=== PATIENT | male | born 1945 | race Caucasian/White ===

== ENCOUNTER 2020-06-14 09:11 | Inpatient (IN) | payer OTHER ==
[2020-06-14 09:51] LABS: Absolute Lymphocytes (CBC) 1.7 K/uL (0.7-4.9); Basophils % 0.8 % (0-1.3); Hematocrit 45.9 % (39.6-49.0); Lymphocytes % 27.5 % (15.3-44.8); MPV 8.7 fL (7.6-11.3)
[2020-06-14 09:52] LABS: Protime INR 1.01
--- NOTE | 2020-06-14 10:07 | RAD REPORT ---
EXAM DESCRIPTION: CT - Head Brain Wo Cont - 06/14/2020 9:56 am CLINICAL HISTORY: Syncope/weakness COMPARISON: None TECHNIQUE: Computed axial tomography of the head was obtained. IV contrast was not requested. All CT scans are performed using dose optimization technique as appropriate and may include automated exposure control or mA/KV adjustment according to patient size. FINDINGS: An intracranial bleed is not seen . The ventricles are normal in caliber. No extra-axial fluid collection is noted. Low density area within the left thalamus and right internal capsule probably old lacunar infarctions . Moderate low-density areas within periventricular, deep and subcortical white matter likely represent ischemic changes secondary to small vessel disease. Fluid within the sinuses/ mastoids is not seen. IMPRESSION: No acute intracranial abnormality is seen. If patient's symptoms persist MRI of the bra in would be recommended.
--- NOTE | 2020-06-14 10:08 | RAD REPORT ---
EXAM DESCRIPTION: Robert Single View06/14/2020 9:55 am CLINICAL HISTORY: Cough COMPARISON: none FINDINGS: The lungs appear clear of acute infiltrate. The heart is normal size IMPRESSION: No acute abnormalities displayed
[2020-06-14 10:11] LABS: Albumin 3.8 g/dL (3.4-5.0); Bilirubin Direct 0.2 mg/dL (0-0.2); Bilirubin Total 0.8 mg/dL (0.2-1.0); Magnesium 2.4 mg/dL (1.8-2.4); Potassium 4.1 mmol/L (3.5-5.1); Protein, Total 7.4 g/dL (6.4-8.2)
--- NOTE | 2020-06-14 12:21 | RAD REPORT ---
EXAM DESCRIPTION: MRI - MRA Neck W/Wo Cont - 06/14/2020 12:11 pm CLINICAL HISTORY: Syncope COMPARISON: None. TECHNIQUE: Magnetic resonance angiogram of the neck was performed. 19 cc MultiHance was administered intravenously. 3D MIPS reconstruction performed FINDINGS: The common carotid, internal carotid and external carotid arteries do not demonstrate a si gnificant stenosis. An aneurysm is not seen. The left vertebral artery is more dominant than the right. IMPRESSION: No significant abnormalities displayed NASCET criteria used. Mild 0-49% stenosis Moderate 50-69% stenosis Severe 70-99% stenosis
--- NOTE | 2020-06-14 12:26 | RAD REPORT ---
EXAM DESCRIPTION: MRI - MRA Head Wo Cont - 06/14/2020 12:07 pm CLINICAL HISTORY: Syncope COMPARISON: None. TECHNIQUE: Magnetic resonance angiogram was performed. 3D MIPS reconstruction performed FINDINGS: Mild short-segment narrowing involves right and left posterior cerebral arteries. This pro bably is chronic. A2 segment left anterior cerebral artery is larger than the right probably a normal variant Middle cerebral, internal carotid and basilar arteries appear unremarkable An aneurysm is not displayed. IMPRESSION: No acute abnormality displayed
--- NOTE | 2020-06-14 12:37 | RAD REPORT ---
EXAM DESCRIPTION: MRI - Brain W/Wo Cont - 06/14/2020 12:20 pm CLINICAL HISTORY: Syncope COMPARISON: Head CT June 14, 2020 TECHNIQUE: Axial, sagittal, and coronal magnetic images of the brain were obtained. Seventeen cc Mul tiHance administered intravenously FINDINGS: Moderate signal within periventricular, deep and subcortical white matter probably ischemi c changes secondary to small vessel disease. 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 Diffusion-weighted/ ADC mapping sequences demonstrate a 7 millimeter area of abnormal signal within t he left basal ganglia which is compatible with an acute infarction. No abnormal enhancement within the brain is seen. An extra-axial fluid collection is not noted. Fluid within the sinuses/mastoids is not seen IMPRESSION: Acute 7 millimeter left basal ganglia infarct
--- NOTE | 2020-06-14 13:01 | ER ---
Nurse's Notes [facility] Name: Blair Garcia Age: 75 yrs Sex: Male : 1945 Arrival Date: 06/14/2020 Time: 09:14 Bed 8 Private MD: Diagnosis: Cerebral infarction Presentation: 06/14 09:15 Chief complaint: EMS states: Toned out by for near fall, pt reports his right arm jl7 gave out while standing with a walker and he just slowly sat on the floor, did not hit head, did not loose consciousness, denies pain. Coronavirus screen: Client denies travel out of the [place] in the last 14 days. At this time, the client does not indicate any symptoms associated with coronavirus-19. Ebola Screen: No symptoms or risks identified at this time. Initial Sepsis Screen: Does the patient meet any 2 criteria? No. Patient's initial sepsis screen is negative. Does the patient have a suspected source of infection? No. Patient's initial sepsis screen is negative. Risk Assessment: Do you want to hurt yourself or someone else? Patient reports no desire to harm self or others. Onset of symptoms was June 14, 2020 at 08:15. Care prior to arrival: Glucose check: 119. 09:15 Method Of Arrival: EMS: [facility] jl7 09:15 Acuity: SOFIA 3 jl7 Triage Assessment: 09:22 General: Appears in no apparent distress. uncomfortable, Behavior is calm, cooperative, jl7 appropriate for age. Pain: Denies pain. EENT: No signs and/or symptoms were reported regarding the EENT system. Neuro: Level of Consciousness is awake, alert, obeys commands, Oriented to person, place. Cardiovascular: Patient's skin is warm and dry. Respiratory: Airway is patent Respiratory effort is even, unlabored, Respiratory pattern is regular, symmetrical. Derm: Skin is pink, warm \T\ dry. Historical: - Allergies: : No Known Allergies; jl7 - Home Meds: :22 Carbidopa-Levodopa Oral [Active]; duloxetine oral oral [Active]; memantine oral oral jl7 [Active]; - PMHx: 09: Parkinsons; Dementia; jl7 - Immunization history:: Adult Immunizations unknown. - Social history:: Smoking status: Patient denies any tobacco usage or history of. Screenin:23 Abuse screen: Denies threats or abuse. Denies injuries from another. Nutritional jl7 screening: No deficits noted. Tuberculosis screening: No symptoms or risk factors identified. 10:00 Patient has been NPO before screening. The patient is alert, able to follow commands. jl7 The patient does not exhibit slurred or garbled speech The patient is not exhibiting difficulty speaking. The patient does not exhibit difficulty understanding words. The patient is able to swallow own secretions with no drooling or need for suction. Patient tolerated one teaspoon of water. No drooling, immediate coughing, gurgling, or clearing of the throat was noted. The patient tolerated 90mL of water. No drooling, immediate coughing, gurgling, or clearing of the throat was noted. The patient passed the bedside swallow screening. Oral medications may be given as ordered. Contact Physician for further diet orders. Provider notified of bedside swallow screening results: Ashley NAVARRO-Umesh. 10:00 Fall Risk Fall in past 12 months (25 points). Secondary diagnosis (15 points) dementia, jl7 IV access (20 points). Ambulatory Aid- Crutches/Cane/Walker (15 pts). Gait- Weak (10 pts.). Mental Status- Oriented to own ability (0 pts). Total Church Fall Scale indicates High Risk Score (45 or more points). Fall prevention measures have been instituted. Side Rails Up X 2 Placed Close to Nursing Station Frequent Obs/Assessments Occuring Family Present and informed to notify staff if the need to leave the bedside As available patient and family educated on Fall Prevention Program and Strategies. Assessment: 09:30 General: Appears in no apparent distress. Behavior is calm, cooperative. Pain: Denies hb pain. Neuro: Level of Consciousness is awake, alert, obeys commands, Oriented to person. Cardiovascular: Capillary refill < 3 seconds Patient's skin is warm and dry. Respiratory: Airway is patent Respiratory effort is even, unlabored, Respiratory pattern is regular, symmetrical. GI: No signs and/or symptoms were reported involving the gastrointestinal system. : No signs and/or symptoms were reported regarding the genitourinary system. EENT: No signs and/or symptoms were reported regarding the EENT system. Derm: Skin is pink, warm \T\ dry. Musculoskeletal: Parent/caregiver report the patient having generalized weakness. 10:30 Reassessment: Patient appears in no apparent distress at this time. No changes from hb previously documented assessment. Patient and/or family updated on plan of care and expected duration. Pain level reassessed. 11:23 Reassessment: Patient appears in no apparent distress at this time. No changes from hb previously documented assessment. Patient and/or family updated on plan of care and expected duration. Pain level reassessed. 12:51 Reassessment: Patient appears in no apparent distress at this time. No changes from hb previously documented assessment. Patient and/or family updated on plan of care and expected duration. Pain level reassessed. 14:00 Reassessment: Patient appears in no apparent distress at this time. No changes from jl7 previously documented assessment. Patient and/or family updated on plan of care and expected duration. Pain level reassessed. 15:00 Reassessment: Patient appears in no apparent distress at this time. No changes from jl7 previously documented assessment. Patient and/or family updated on plan of care and expected duration. Pain level reassessed. 16:45 Reassessment: Pt's reports pt is becoming agitated and beginning to , jl7 requesting assistance to change ot's pullup and requesting to feed pt. Dr. Bravo reports Dr. Clark will see the pt tomorrow and he will get in touch with him tonight to inquire what to give pt to help relax him through the night. Gave VO for soft diet until speech therapy seeing pt tomorrow. Changed pts brief, ordered diet tray, updated pt and pt's on POC, awaiting bed assignment. 18:30 Reassessment: Patient appears in no apparent distress at this time. No changes from hb previously documented assessment. Patient and/or family updated on plan of care and expected duration. Pain level reassessed. Vital Signs: 09:15 BP 168 / 91; Pulse 61; Resp 13; Temp 98; Pulse Ox 96% ; Weight 74.84 kg; Height 5 ft. 6 jl7 in. (167.64 cm); Pain 0/10; 09:45 BP 168 / 91; Pulse 66; Resp 15; Pulse Ox 99% on R/A; hb 10:45 BP 164 / 84; Pulse 65; Resp 15; Pulse Ox 99% ; hb 12:45 BP 160 / 82; Pulse 64; Resp 16; Pulse Ox 99% on R/A; hb 13:30 BP 175 / 83; Pulse 68; Resp 15; Pulse Ox 98% ; jl7 14:30 BP 154 / 90; Pulse 58; Resp 16; Pulse Ox 96% ; jl7 15:30 BP 151 / 78; Pulse 54; Resp 17; Pulse Ox 93% ; jl7 16:30 BP 170 / 106; Pulse 67; Resp 15; Pulse Ox 94% ; jl7 17:33 BP 168 / 65; Pulse 69; Resp 15; Pulse Ox 91% ; jl7 18:30 BP 149 / 78; Pulse 80; Resp 15; Pulse Ox 99% on R/A; hb 19:27 BP 152 / 83; Pulse 70; Resp 18; Pulse Ox 98% ; ea 09:15 Body Mass Index 26.63 (74.84 kg, 167.64 cm) jl7 ED Course: 09:14 Patient arrived in ED. ds1 09:15 Ben Gabriel, JAZIEL is Primary Nurse. jl7 09:19 Ashley Mejía FNP-C [facility]. kb 09:19 Jagdeep Elizondo MD is Attending Physician. kb 09:19 Triage completed. jl7 09:22 Arm band placed on right wrist. jl7 09:23 Patient has correct armband on for positive identification. Placed in gown. Bed in low jl7 position. Call light in reach. Side rails up X 1. campus monitor on. Pulse ox on. NIBP on. 09:54 CT Head Brain wo Cont In Process Unspecified. EDMS 09:55 XRAY Chest (1 view) In Process Unspecified. EDMS 10:00 Initial lab(s) drawn, by ct, sent to lab. EKG done, by ED staff, reviewed by Ashley APPIAH. Inserted saline lock: 20 gauge in right hand, using aseptic technique. Blood collected. 12:00 COVID swab sent to lab. jl7 12:08 MRA Head Wo Cont In Process Unspecified. EDMS 12:08 Brain W/Wo Cont In Process Unspecified. EDMS 12:08 MRA Neck W/Wo Cont In Process Unspecified. EDMS 13:00 Ruiz Bravo is Hospitalizing Provider. kb 19:15 No provider procedures requiring assistance completed. Patient admitted, IV remains in ea place. 19:39 Primary Nurse role handed off by Ben Gabriel, RN mw2 Administered Medications: 13:23 Drug: PlaVIX 75 mg Route: PO; jl7 17:57 Follow up: Response: No adverse reaction jl7 13:23 Drug: foLIC Acid 1 mg Route: PO; jl7 17:56 Follow up: Response: No adverse reaction jl7 13:31 Drug: Aspirin Chewable Tablet 324 mg Route: PO; jl7 17:58 Follow up: Response: No adverse reaction jl7 Outcome: 13:00 Decision to Hospitalize by Provider. kb 19:51 Admitted to Med/surg accompanied by tech, via stretcher, with chart. mg2 19:51 Condition: stable 19:51 Instructed on the need for admit, Demonstrated understanding of instructions. 19:58 Patient left the ED. mg2 Signatures: Dispatcher [employer] EDMS Ashley Mejía, LACE INSPECTOR-C LACE INSPECTOR-Ckb Sandra Rivera ds1 Katya Kiran RN RN Ben Gabriel, RN RN jl7 Bella Santiago RN RN ea [place], MyKena mw2 Jassi Neilson RN JAZIEL mg2
--- NOTE | 2020-06-14 13:01 | EDPHYS ---
Physician Documentation [facility] Name: Blair Garcia Age: 75 yrs Sex: Male : 1945 Arrival Date: 06/14/2020 Time: 09:14 Bed 8 Private MD: ED Physician Jagdeep Elizondo HPI: 06/14 10:01 This 75 yrs old Male presents to ER via EMS with complaints of General kb Weakness. 10:01 The patient presents with generalized weakness. Onset: The symptoms/episode kb began/occurred this morning. Context: occurred at home, occurred while the patient was asleep, just prior to the episode the patient experienced no apparent symptoms. Modifying factors: The symptoms are alleviated by nothing, the symptoms are aggravated by nothing. Associated signs and symptoms: Pertinent negatives: chest pain, focal weakness, syncope. Severity of symptoms: At their worst the symptoms were moderate in the emergency department the symptoms are unchanged. Patient's baseline: Neuro: alert and fully oriented, Motor: right-sided weakness, left-sided weakness, Ambulation: walks with assist only, uses walker, Speech: slow, The patient has a previous history of vascular dementia and parkinsons. The patient has not experienced similar symptoms in the past. The patient has not recently seen a physician. reports pt was diagnosed with vascular dementia and parkinson's a few years ago. States he has slow motor movements, but this morning he could hardly get out of bed because he was so weak. He was walking out of bathroom and fell to the floor. Denies any injuries. reports pt normally has a slow, shuffling gait, but this morning it looked like he was dragging his right foot. Pt reports he felt like he lost his stenographer secretary in his right hand and then felt like his knees were going out so that is why he fell. reports pt slid to the ground. reports they went to the dentist yesterday for a teeth cleaning and getting him in and out of the car has become much harder. Also reports pt has moments where he is lucid and other moments when he hallucinates or is confused. This is normal for him. Historical: - Allergies: 09: No Known Allergies; jl7 - Home Meds: :22 Carbidopa-Levodopa Oral [Active]; duloxetine oral oral [Active]; memantine oral oral jl7 [Active]; - PMHx: 09:22 Parkinsons; Dementia; jl7 - Immunization history:: Adult Immunizations unknown. - Social history:: Smoking status: Patient denies any tobacco usage or history of. ROS: 10:08 Constitutional: Negative for fever, chills, and weight loss, Cardiovascular: Negative kb for chest pain, palpitations, and edema, Respiratory: Negative for shortness of breath, cough, wheezing, and pleuritic chest pain, Abdomen/GI: Negative for abdominal pain, nausea, vomiting, diarrhea, and constipation, MS/Extremity: Negative for injury and deformity, Skin: Negative for injury, rash, and discoloration. 10:08 Neuro: Positive for weakness. Exam: :55 ECG was reviewed by the Attending Physician. kb 10:09 Constitutional: This is a well developed, well nourished patient who is awake, alert, kb and in no acute distress. Head/Face: Normocephalic, atraumatic. Chest/axilla: Normal chest wall appearance and motion. Nontender with no deformity. No lesions are appreciated. Cardiovascular: Regular rate and rhythm with a normal S1 and S2. No gallops, murmurs, or rubs. Normal PMI, no JVD. No pulse deficits. Respiratory: Lungs have equal breath sounds bilaterally, clear to auscultation and percussion. No rales, rhonchi or wheezes noted. No increased work of breathing, no retractions or nasal flaring. Abdomen/GI: Soft, non-tender, with normal bowel sounds. No distension or tympany. No guarding or rebound. No evidence of tenderness throughout. Skin: Warm, dry with normal turgor. Normal color with no rashes, no lesions, and no evidence of cellulitis. MS/ Extremity: Pulses equal, no cyanosis. Neurovascular intact. Full, normal range of motion. 10:09 Neuro: Orientation: no acute changes, per family, to person, place, time \T\ situation. Mentation: is normal, able to follow commands, Memory: no acute changes, per family, Motor: strength is 4/5 in the right arm, left arm and left leg, Strength is 3/5 in the right leg, Sensation: is normal. Vital Signs: 09:15 BP 168 / 91; Pulse 61; Resp 13; Temp 98; Pulse Ox 96% ; Weight 74.84 kg; Height 5 ft. 6 jl7 in. (167.64 cm); Pain 0/10; 09:45 BP 168 / 91; Pulse 66; Resp 15; Pulse Ox 99% on R/A; hb 10:45 BP 164 / 84; Pulse 65; Resp 15; Pulse Ox 99% ; hb 12:45 BP 160 / 82; Pulse 64; Resp 16; Pulse Ox 99% on R/A; hb 13:30 BP 175 / 83; Pulse 68; Resp 15; Pulse Ox 98% ; jl7 14:30 BP 154 / 90; Pulse 58; Resp 16; Pulse Ox 96% ; jl7 15:30 BP 151 / 78; Pulse 54; Resp 17; Pulse Ox 93% ; jl7 16:30 BP 170 / 106; Pulse 67; Resp 15; Pulse Ox 94% ; jl7 17:33 BP 168 / 65; Pulse 69; Resp 15; Pulse Ox 91% ; jl7 18:30 BP 149 / 78; Pulse 80; Resp 15; Pulse Ox 99% on R/A; hb 19:27 BP 152 / 83; Pulse 70; Resp 18; Pulse Ox 98% ; ea 09:15 Body Mass Index 26.63 (74.84 kg, 167.64 cm) jl7 MDM: 09:20 Patient medically screened. kb 10:08 Data reviewed: vital signs, nurses notes. Data interpreted: Pulse oximetry: on room air kb is 96 %. Interpretation: normal. 12:59 Counseling: I had a detailed discussion with the patient and/or guardian regarding: the kb historical points, exam findings, and any diagnostic results supporting the discharge/admit diagnosis, lab results, radiology results, the need for further work-up and treatment in the hospital. Physician consultation: Luis Clark MD was contacted at 12:59, regarding consult, patient's condition, and will see patient in inpatient room. 12:59 Physician consultation: Ruiz Bravo was contacted at 12:59, regarding admission, to the telemetry unit. patient's condition, and will see patient in ED. 06/14 09:35 Order name: Basic Metabolic Panel; Complete Time: 10:12 kb 06/14 09:35 Order name: CBC with Diff; Complete Time: 09:54 kb 06/14 09:35 Order name: LFT's; Complete Time: 10:12 kb 06/14 09:35 Order name: Magnesium; Complete Time: 10:12 kb 06/14 09:35 Order name: NT PRO-BNP; Complete Time: 10:12 kb 06/14 09:35 Order name: PT-INR; Complete Time: 09:54 kb 06/14 09:35 Order name: XRAY Chest (1 view); Complete Time: 10:11 kb 06/14 09:35 Order name: CT Head Brain wo Cont; Complete Time: 10:11 kb 06/14 11:05 Order name: MRA Head Wo Cont; Complete Time: 12:27 EDMS 06/14 11:08 Order name: Brain W/Wo Cont; Complete Time: 12:39 EDMS 06/14 11:08 Order name: MRA Neck W/Wo Cont; Complete Time: 12:22 EDMS 06/14 13:32 Order name: SARS-COV-2 RT PCR; Complete Time: 13:32 EDMS 06/14 09:35 Order name: EKG; Complete Time: 09:35 kb 06/14 09:35 Order name: Cardiac monitoring; Complete Time: 10:02 kb 06/14 09:35 Order name: EKG - Nurse/Tech; Complete Time: 10:02 kb 06/14 09:35 Order name: IV Saline Lock; Complete Time: 10:06 kb 06/14 09:35 Order name: Labs collected and sent; Complete Time: 10:02 kb 06/14 09:35 Order name: O2 Per Protocol; Complete Time: 10:02 kb 06/14 09:35 Order name: O2 Sat Monitoring; Complete Time: 10:02 kb 06/14 14:11 Order name: CONS Physician Consult EDMS 06/14 16:45 Order name: Diet Soft; Complete Time: 16:46 jl7 EC:55 Rate is 61 beats/min. Rhythm is regular. QRS [place] is Normal. NM interval is normal at kb 154 msec. QRS interval is normal at 88 msec. QT interval is normal at 412 msec. Administered Medications: 13:23 Drug: PlaVIX 75 mg Route: PO; jl7 17:57 Follow up: Response: No adverse reaction jl7 13:23 Drug: foLIC Acid 1 mg Route: PO; jl7 17:56 Follow up: Response: No adverse reaction jl7 13:31 Drug: Aspirin Chewable Tablet 324 mg Route: PO; jl7 17:58 Follow up: Response: No adverse reaction jl7 Disposition: 06/14/20 13:00 Hospitalization ordered by Ruiz Bravo for Inpatient Admission. Preliminary diagnosis is Cerebral infarction. - Bed requested for Telemetry/MedSurg (Inpatient). - Status is Inpatient Admission. mg2 - Condition is Stable. - Problem is new. - Symptoms are unchanged. Addendum: 06/16/2020 14:34 Co-signature as Attending Physician, Jagdeep Elizondo MD I agree with the assessment and k plan of care. Signatures: Dispatcher [employer] EDVA Ashley Mejía, DRY GOODS INSPECTOR-C DRY GOODS INSPECTOR-Ckb Jagdeep Elizondo MD MD kdr Madison Valdez RN RN aa5 Ben Gabriel RN RN jl7 Jassi Nielson RN RN mg2 Corrections: (The following items were deleted from the chart) 06/14 10:09 10:01 reports pt was diagnosed with vascular dementia and parkinson's a few years kb ago. States he has slow motor movements, but this morning he could hardly get out of bed because he was so weak. He was walking out of bathroom and fell to the floor. Denies any injuries. reports pt normally has a slow, shuffling gait, but this morning it looked like he was dragging his right foot. Pt reports he felt like he lost his stenographer secretary in his right hand and then felt like his knees were going out so that is why he fell. reports pt slid to the ground. reports they went to the dentist yesterday for a teeth cleaning and getting him in and out of the car has become much harder. . kb 11:05 10:12 MR STROKE PROTOCOL+MRI.RAD.BRZ ordered. EDVA EDVA 12:49 11:11 CORONAVIRUS+MR.LAB.BRZ ordered. EDVA EDVA 18:37 13:00 Hospitalization Ordered by Ruiz Bravo for Inpatient Admission. Preliminary aa5 diagnosis is Cerebral infarction. Bed requested for Telemetry/MedSurg (Inpatient). Status is Inpatient Admission. Condition is Stable. Problem is new. Symptoms are unchanged. kb 19:58 18:37 06/14/2020 13:00 Hospitalization Ordered by Ruiz Bravo for Inpatient mg2 Admission. Preliminary diagnosis is Cerebral infarction. Bed requested for Telemetry/MedSurg (Inpatient). Status is Inpatient Admission. Condition is Stable. Problem is new. Symptoms are unchanged. aa5
[2020-06-14] MEDS ORDERED: FOLIC ACID 1 MG TABLET ONE (13:22)
[2020-06-14] MEDS ORDERED: ASPIRIN 81 MG CHEWABLE TABLET ONE (13:22)
[2020-06-14] MEDS ORDERED: CLOPIDOGREL 75 MG TABLET ONE (13:23)
--- NOTE | 2020-06-14 15:20 | P.HP ---
Certification for Inpatient Patient admitted to: Inpatient With expected LOS: >2 Midnights Practitioner: I am a practitioner with admitting privileges, knowledge of patient current condition, hospital course, and medical plan of care. Services: Services provided to patient in accordance with Admission requirements found in Title 42 Section 412.3 of the Code of Federal Regulations Patient History Date of Service: 06/14/20 Reason for admission: Fall, generalized weakness. History of Present Illness: 75-year-old gentleman with a history of Parkinson's disease was brought to the emergency department because of progressive generalized weakness. According to the spouse patient fell today and could not get due to the weakness and therefore brought him to the emergency department. Patient denied hitting his head during the fall. Workup in the emergency department CT head and MRI of the brain demonstrated acute infarct in the left basal ganglia. His neurologist Dr. Clark was contacted. His EKG demonstrates sinus rhythm. COVID 19 screen is negative. Patient is hospitalized for further management of acute CVA. Allergies No Known Allergies Allergy (Unverified 06/14/20 14:51) - Past Medical/Surgical History -: Parkinson's disease -: Dementia - Family History Mother -: Stroke - Social History Smoking Status: Never smoker Alcohol use: No CD- Drugs: No Place of Residence: Home Review of Systems Other: Except as documented, all other systems reviewed and negative. Physical Examination - Physical Exam General: Alert, In no apparent distress, Oriented x3 HEENT: Atraumatic, PERRLA, Mucous membr. moist/pink, EOMI, Sclerae nonicteric Neck: Supple, 2+ carotid pulse no bruit, JVD not distended, No Thyromegaly Respiratory: Clear to auscultation bilaterally, Normal air movement Cardiovascular: No edema, Regular rate/rhythm, Normal S1 S2 Gastrointestinal: Normal bowel sounds, Soft and benign, Non-distended, No tenderness Musculoskeletal: No swelling, No tenderness Integumentary: No rashes, No erythema Neurological: Normal gait, Normal speech, Normal strength at 5/5 x4 extr, Cranial nerves 3-12 intact, Other (Tremor-resting and unintentional in all extremities.) - Studies Laboratory Data (last 24 hrs) 06/14/20 09:41: PT 11.6, INR 1.01 06/14/20 09:41: WBC 6.30, Hgb 15.2, Hct 45.9, Plt Count 183 06/14/20 09:41: Sodium 141, Potassium 4.1, BUN 13, Creatinine 1.01, Glucose 110 H, Magnesium 2.4, Total Bilirubin 0.8, AST 9 L, ALT 9 L, Alkaline Phosphatase 84 Assessment and Plan - Problems (Diagnosis) (1) Acute CVA (cerebrovascular accident) Current Visit: Yes Status: Acute (2) Parkinsons disease Current Visit: Yes Status: Acute (3) Dementia Current Visit: Yes Status: Acute (4) Fall Current Visit: Yes Status: Acute - Plan Admit to the medical floor. Continue stroke protocol initiated in the ED. Patient already taking aspirin 81 mg daily at home. Will increase aspirin to 162 mg daily. Add Plavix and folic acid. Spouse states patient experienced myalgia with statins. Check lipid profile Will explore other alternatives if the LDL is elevated. Obtain echocardiogram. Consult to neurology Continue home dose Sinemet. Speech therapy to evaluate for swallow PT consult. Patient is looking at a long-term care placement and [place]. Anticipating disposition to inpatient rehab or skilled rehab. Consult to social service. - Advance Directives Does patient have a Living Will: No Does patient have a Durable POA for Healthcare: No
[2020-06-14] MEDS: ATORVASTATIN 20 MG TAB PO SCH (22:00)
[2020-06-14] MEDS ORDERED: ACETAMINOPHEN 500 MG TAB PO PRN (22:00)
[2020-06-14] MEDS: CARBIDOPA/LEVODOPA 25/100 TAB PO SCH (22:00)
[2020-06-14] MEDS ORDERED: ONDANSETRON 4 MG/2 ML VIAL IV PRN (22:00)
[2020-06-14] MEDS: NA CHLORIDE 0.9% 1,000 ML IV SCH (23:07)
[2020-06-15 02:03] VITALS: BMI 29.2
[2020-06-15 06:08] LABS: Absolute Lymphocytes (CBC) 2.2 K/uL (0.7-4.9); Hematocrit 45.1 % (39.6-49.0); Lymphocytes % 31.3 % (15.3-44.8); RBC Red Blood Cell Count 4.78 M/uL (4.33-5.43)
[2020-06-15 06:21] LABS: Albumin 3.4 g/dL (3.4-5.0); Bilirubin Total 0.9 mg/dL (0.2-1.0); Magnesium 2.3 mg/dL (1.8-2.4); Phosphorus 2.6 mg/dL (2.5-4.9); Potassium 3.9 mmol/L (3.5-5.1); Protein, Total 6.9 g/dL (6.4-8.2); Thyroid Stimulating Hormone 1.14 uIU/mL (0.360-3.740)
[2020-06-15 06:39] LABS: Protime INR 1.05
[2020-06-15] MEDS: ENOXAPARIN 40 MG/0.4 ML SQ SCH (08:34)
[2020-06-15] MEDS: ASPIRIN EC 81 MG TAB PO SCH ×2 (08:34→10:41)
[2020-06-15] MEDS: CARBIDOPA/LEVODOPA 25/100 TAB PO SCH ×4 (08:34→21:01)
[2020-06-15] MEDS: CLOPIDOGREL 75 MG TABLET PO SCH ×2 (08:34→10:42)
[2020-06-15] MEDS ORDERED: KCL 20 MEQ/100 mL IVPB 20 MEQ/100 ML BAG IV SCH (09:00)
[2020-06-15] MEDS: DULOXETINE 20 MG CAP PO SCH ×2 (09:00→10:42)
[2020-06-15] MEDS: CYANOCOBALAMIN 1,000 MCG TAB PO SCH ×2 (09:00→10:42)
[2020-06-15] MEDS: MAGNESIUM OXIDE 400 MG TAB PO SCH ×2 (09:00)
[2020-06-15] MEDS: MEMANTINE HCL 10 MG TABLET PO SCH ×3 (09:00→21:00)
[2020-06-15] MEDS: LACTOBACILLUS/ACIDOPHILUS TAB PO SCH ×2 (09:00→10:41)
[2020-06-15] MEDS: ASCORBIC ACID 500 MG TABLET PO SCH ×2 (09:00→10:41)
[2020-06-15] MEDS: NA CHLORIDE 0.9% 1,000 ML IV SCH ×2 (11:20→17:33)
--- NOTE | 2020-06-15 11:43 | P.PN ---
Subjective Date of Service: 06/15/20 Chief Complaint: Fall, generalized weakness. Patient appeared to be sundowning briefly last night. Nursing staff report patient slept through the night. Spouse reports patient is slow mentally. Patient was oriented to person and place during my assessment. Nursing staff report patient was coughing on water. Physical Examination - Vital Signs Temperature: 97.3 F Blood Pressure: 177/81 Pulse: 54 Respirations: 16 Pulse Ox (%): 96 - Physical Exam General: In no apparent distress, Oriented x2 HEENT: Mucous membr. moist/pink Neck: Supple, JVD not distended Respiratory: Clear to auscultation bilaterally, Normal air movement Cardiovascular: No edema, Regular rate/rhythm, Normal S1 S2 Gastrointestinal: Soft and benign, Non-distended, No tenderness Musculoskeletal: No swelling, No erythema Integumentary: No rashes, No erythema Neurological: Normal strength at 5/5 x4 extr, Cranial nerves 3-12 intact, Other (Tremors.) Assessment And Plan - Current Problems (Diagnosis) (1) Acute CVA (cerebrovascular accident) Current Visit: Yes Status: Acute (2) Parkinsons disease Current Visit: Yes Status: Acute (3) Dementia Current Visit: Yes Status: Acute (4) Fall Current Visit: Yes Status: Acute - Plan Continue aspirin to 162 mg daily, Plavix and folic acid. Spouse states patient experiences myalgia with statins. LDL: 134. Trial of Zetia. Echocardiogram is pending Neurology-Dr. Clark to see patient. Awaiting speech therapy to do swallow evaluation. Patient tolerated puree diet last night Continue home dose Sinemet. Crash medications and give in puree diet for now. PT to evaluate. Patient is looking at a long-term care placement and [place]. Anticipating disposition to inpatient rehab or skilled rehab.
[2020-06-15] MEDS ORDERED: HYDRALAZINE HCL 20 MG/ML VIAL IV ONE (15:51)
[2020-06-15] MEDS ORDERED: HYDRALAZINE HCL 20 MG/ML VIAL IV PRN (18:22)
[2020-06-15] MEDS: EZETIMIBE 10 MG TAB PO SCH (20:58)
[2020-06-15] MEDS: ATORVASTATIN 20 MG TAB PO SCH (20:58)
[2020-06-15] MEDS: MELATONIN 3 MG TABLET PO SCH (21:00)
[2020-06-16 05:55] LABS: Absolute Lymphocytes (CBC) 1.5 K/uL (0.7-4.9); Basophils % 0.8 % (0-1.3); Hematocrit 41.4 % (39.6-49.0); Lymphocytes % 17.4 % (15.3-44.8); MPV 8.5 fL (7.6-11.3); RBC Red Blood Cell Count 4.47 M/uL (4.33-5.43)
[2020-06-16 05:58] LABS: Protime INR 1.06
[2020-06-16 06:18] LABS: Potassium 3.8 mmol/L (3.5-5.1)
--- NOTE | 2020-06-16 07:57 | EKG ---
Test Date: 2020-06-14 Test Time: 09:45:50 Buffing Wheel Raker: JOSIAH MEASUREMENT RESULTS: Intervals: Rate: 61 ND: 154 QRSD: 88 QT: 412 QTc: 414 [place]: P: 37 ND: 154 QRS: -19 T: 34 INTERPRETIVE STATEMENTS: Normal sinus rhythm Low voltage QRS Borderline ECG Compared to ECG 12/29/1999 12:46:00 Low QRS voltage now present Incomplete right bundle-branch block no longer present Electronically Signed On 06-16-20 07:53:30 HAND MEAT SALTER by Olegario Henry
[2020-06-16] MEDS: MAGNESIUM OXIDE 400 MG TAB PO SCH (09:00)
[2020-06-16] MEDS: ENOXAPARIN 40 MG/0.4 ML SQ SCH (10:03)
[2020-06-16] MEDS: ASPIRIN EC 81 MG TAB PO SCH (10:04)
[2020-06-16] MEDS: CYANOCOBALAMIN 1,000 MCG TAB PO SCH (10:04)
[2020-06-16] MEDS: LACTOBACILLUS/ACIDOPHILUS TAB PO SCH (10:04)
[2020-06-16] MEDS: ASCORBIC ACID 500 MG TABLET PO SCH (10:05)
[2020-06-16] MEDS: MEMANTINE HCL 10 MG TABLET PO SCH ×2 (10:06→21:04)
[2020-06-16] MEDS: CLOPIDOGREL 75 MG TABLET PO SCH (10:06)
[2020-06-16] MEDS: CARBIDOPA/LEVODOPA 25/100 TAB PO SCH ×3 (10:06→21:05)
[2020-06-16] MEDS: DULOXETINE 20 MG CAP PO SCH (10:07)
[2020-06-16] MEDS: NA CHLORIDE 0.9% 1,000 ML IV SCH (10:08)
[2020-06-16] MEDS: AMLODIPINE 5 MG TAB PO SCH (10:11)
--- NOTE | 2020-06-16 11:00 | RAD REPORT ---
EXAM DESCRIPTION: USCarotid Artery Bilateral06/15/2020 10:03 pm CLINICAL HISTORY: cva COMPARISON: None FINDINGS: The velocity of the right internal carotid artery equals 89 cm/sec. The right ICA/CCA rati o 0.8 The velocity of the left internal carotid artery equals 51 cm/sec. The left ICA/CCA ratio 0.8 Plaque is not visualized the carotid arteries The vertebral arteries demonstrate antegrade flow IMPRESSION: Unremarkable exam NASCET criteria used. Mild 0-49% stenosis Moderate 50-69% stenosis Severe 70-99% stenosis
--- NOTE | 2020-06-16 11:06 | P.PN ---
Subjective Date of Service: 06/16/20 Chief Complaint: Fall, generalized weakness. Spouse feels patient is more interactive and more alert today. No issues overnight. Blood pressure is moderately elevated Patient has no complain. He has been tolerating puree diet, and his medications crushed in puree diet. Physical Examination - Vital Signs Temperature: 97.8 F Blood Pressure: 140/79 Pulse: 60 Respirations: 16 Pulse Ox (%): 94 - Physical Exam General: In no apparent distress, Oriented x2 HEENT: Mucous membr. moist/pink Neck: Supple, JVD not distended Respiratory: Clear to auscultation bilaterally, Normal air movement Cardiovascular: No edema, Regular rate/rhythm, Normal S1 S2 Gastrointestinal: Soft and benign, Non-distended, No tenderness Musculoskeletal: No swelling, No tenderness Integumentary: No rashes, No erythema Neurological: Other (No focal motor deficit, mildly slurred speech, tremors in bilateral hands, worse on the right.) Assessment And Plan - Current Problems (Diagnosis) (1) Acute CVA (cerebrovascular accident) Current Visit: Yes Status: Acute (2) Parkinsons disease Current Visit: Yes Status: Acute (3) Dementia Current Visit: Yes Status: Acute (4) Fall Current Visit: Yes Status: Acute - Plan Continue aspirin to 162 mg daily, Plavix and folic acid. Spouse states patient experiences myalgia with statins. LDL: 134. Patient started on Zetia. Echocardiogram is pending Case discussed with neurology-Dr. Clark. Awaiting speech therapy to do comprehensive swallow evaluation. Patient tolerating puree diet last night Continue home dose Sinemet. Crash medications and give in puree diet for now. Patient started on amlodipine for hypertension. Hydralazine p.r.n. for BP spikes. PT to evaluate. Patient is looking at a long-term care placement and [place]. Anticipating disposition to inpatient rehab or skilled rehab.
[2020-06-16] MEDS: MELATONIN 3 MG TABLET PO SCH (21:00)
[2020-06-16] MEDS: EZETIMIBE 10 MG TAB PO SCH (21:05)
[2020-06-16] MEDS: ATORVASTATIN 20 MG TAB PO SCH (21:05)
[2020-06-17] MEDS: NA CHLORIDE 0.9% 1,000 ML IV SCH ×2 (03:20→06:19)
[2020-06-17 05:16] LABS: Protime INR 1.1
[2020-06-17 05:36] LABS: BUN Blood Urea Nitrogen 12 mg/dL (7-18); Bicarbonate 24 mmol/L (21-32); Glucose Level 124 mg/dL (74-106); Potassium 3.8 mmol/L (3.5-5.1); Sodium Level 143 mmol/L (136-145)
[2020-06-17] MEDS: AMLODIPINE 5 MG TAB PO SCH (09:00)
[2020-06-17] MEDS: CYANOCOBALAMIN 1,000 MCG TAB PO SCH (09:28)
[2020-06-17] MEDS: ASCORBIC ACID 500 MG TABLET PO SCH (09:28)
[2020-06-17] MEDS: ENOXAPARIN 40 MG/0.4 ML SQ SCH (09:28)
[2020-06-17] MEDS: LACTOBACILLUS/ACIDOPHILUS TAB PO SCH (09:29)
[2020-06-17] MEDS: CLOPIDOGREL 75 MG TABLET PO SCH (09:29)
[2020-06-17] MEDS: MEMANTINE HCL 10 MG TABLET PO SCH ×2 (09:29→20:18)
[2020-06-17] MEDS: ASPIRIN EC 81 MG TAB PO SCH (09:29)
[2020-06-17] MEDS: CARBIDOPA/LEVODOPA 25/100 TAB PO SCH ×3 (09:30→20:17)
[2020-06-17] MEDS: MAGNESIUM OXIDE 400 MG TAB PO SCH (09:31)
[2020-06-17] MEDS: DULOXETINE 20 MG CAP PO SCH (09:31)
[2020-06-17] MEDS: AMLODIPINE 10 MG TAB PO SCH (09:40)
[2020-06-17] MEDS ORDERED: AMLODIPINE 5 MG TAB PO ONE (10:00)
--- NOTE | 2020-06-17 12:51 | P.PN ---
Subjective Date of Service: 06/17/20 Chief Complaint: Fall, generalized weakness. Patient is doing much better today. He is interactive. His speech is better. No issues overnight. No agitation. Blood pressure is moderately elevated Patient has no complain. He has been tolerating puree diet, and his medications crushed in puree diet. Physical Examination - Vital Signs Temperature: 98.1 F Blood Pressure: 155/83 Pulse: 76 Respirations: 18 Pulse Ox (%): 94 - Physical Exam General: In no apparent distress, Oriented x2 HEENT: PERRLA, EOMI Neck: JVD not distended Respiratory: Clear to auscultation bilaterally, Normal air movement Cardiovascular: No edema, Regular rate/rhythm, Normal S1 S2 Gastrointestinal: Soft and benign, Non-distended, No tenderness Musculoskeletal: No swelling Integumentary: No rashes, No tenderness/swelling Neurological: Other (Tremors bilateral hands. No focal motor deficit.) Assessment And Plan - Current Problems (Diagnosis) (1) Acute CVA (cerebrovascular accident) Current Visit: Yes Status: Acute (2) Parkinsons disease Current Visit: Yes Status: Acute (3) Dementia Current Visit: Yes Status: Acute (4) Fall Current Visit: Yes Status: Acute - Plan Continue aspirin to 162 mg daily, Plavix and folic acid. Spouse states patient experiences myalgia with statins. LDL: 134. Patient started on Zetia. Echocardiogram is pending. Case discussed with neurology-Dr. Clark. Awaiting speech therapy to do comprehensive swallow evaluation. Patient tolerating puree diet. Continue home dose Sinemet. Crash medications and give in puree diet for now. Patient started on amlodipine for hypertension. Hydralazine p.r.n. for BP spikes. PT to evaluate. Patient is looking at a long-term care placement at [place]. Anticipating disposition to inpatient rehab or skilled rehab.
[2020-06-17] MEDS: MELATONIN 3 MG TABLET PO SCH (20:17)
[2020-06-17] MEDS: ATORVASTATIN 20 MG TAB PO SCH (20:17)
[2020-06-17] MEDS: EZETIMIBE 10 MG TAB PO SCH (20:17)
[2020-06-18] MEDS: NA CHLORIDE 0.9% 1,000 ML IV SCH (00:56)
[2020-06-18 06:29] LABS: Potassium 3.7 mmol/L (3.5-5.1)
[2020-06-18 06:53] LABS: Protime INR 1.09
[2020-06-18] MEDS: ENOXAPARIN 40 MG/0.4 ML SQ SCH (08:43)
[2020-06-18] MEDS: AMLODIPINE 10 MG TAB PO SCH (08:43)
[2020-06-18] MEDS: ASCORBIC ACID 500 MG TABLET PO SCH (08:44)
[2020-06-18] MEDS: ASPIRIN EC 81 MG TAB PO SCH (08:44)
[2020-06-18] MEDS: CARBIDOPA/LEVODOPA 25/100 TAB PO SCH ×3 (08:44→20:32)
[2020-06-18] MEDS: MEMANTINE HCL 10 MG TABLET PO SCH ×2 (08:45→20:33)
[2020-06-18] MEDS: CLOPIDOGREL 75 MG TABLET PO SCH (08:45)
[2020-06-18] MEDS: CYANOCOBALAMIN 1,000 MCG TAB PO SCH (08:45)
[2020-06-18] MEDS: DULOXETINE 20 MG CAP PO SCH (08:45)
[2020-06-18] MEDS: MAGNESIUM OXIDE 400 MG TAB PO SCH (08:45)
[2020-06-18] MEDS: LACTOBACILLUS/ACIDOPHILUS TAB PO SCH (08:45)
[2020-06-18] MEDS ORDERED: POTASSIUM 25 MEQ EFFERV TAB PO ONE (09:00)
[2020-06-18] MEDS ORDERED: AMLODIPINE 10 MG TAB PO SCH (09:00)
--- NOTE | 2020-06-18 12:31 | P.PN ---
Subjective Date of Service: 06/18/20 Chief Complaint: Fall, generalized weakness. Subjective: Improving (patient feels like minimal strength has returned. feels patient is more alert, not slurring "as bad", but still significantly changed from baseline. No BM in a few days) Review of Systems 10-point ROS is otherwise unremarkable Physical Examination - Vital Signs Temperature: 98.3 F Blood Pressure: 163/78 Pulse: 67 Respirations: 18 Pulse Ox (%): 94 Assessment & Plan Physician Review Additional Text: Physical Exam Gen: In no apparent distress, Oriented x3, slightly sleepy HEENT: PERRL, EOMI, sclera anicteric Pulm: CTAB, nonlabored on room air CV: regular rate/rhythm, no edema Abd: Soft, Non-distended, No tenderness Ext: No rashes, No tenderness/swelling Neuro: tremor b/l hands, R sided weak > L, R lower facial droop Problem List: Acute CVA (cerebrovascular accident) Parkinsons disease Dementia Fall Continue aspirin 162 mg daily, Plavix and folic acid. Spouse states patient experiences myalgia with statins. LDL: 134. Patient started on Zetia. Echocardiogram has not been done yet. No staff to perform today due to weather Case was previousl discussed with neurology - Dr. Clark. Family wanting to discuss further with Dr. Clark Awaiting speech therapy to do comprehensive swallow evaluation. Patient tolerating pureed diet. Crush medications and give in pureed diet for now. Continue home medications / parkinson meds Patient started on amlodipine for hypertension. Hydralazine p.r.n. for BP spikes. PT evaluating patient - max assist reports waiting to hear back regarding possible inpatient rehab, otherwise will need skilled rehab and is in agreement Per EMR review: they are also looking at a long-term care placement at [place]. VTE: lovenox prophylaxis Code: full Dispo: pending possible inpatient rehab eval/approval, otherwise skilled rehab. awaiting on echocardiogram as well Time Spent Managing Pts Care (In Minutes): 35
[2020-06-18] MEDS: MELATONIN 3 MG TABLET PO SCH (20:32)
[2020-06-18] MEDS: EZETIMIBE 10 MG TAB PO SCH (20:32)
[2020-06-18] MEDS: ATORVASTATIN 20 MG TAB PO SCH (20:33)
[2020-06-19 06:17] LABS: Potassium 3.9 mmol/L (3.5-5.1)
[2020-06-19 06:38] LABS: Protime INR 1.08
[2020-06-19] MEDS ORDERED: POTASSIUM 25 MEQ EFFERV TAB PO ONE (09:00)
[2020-06-19] MEDS ORDERED: OXYMETAZOLINE HCL 0.05% 15ML NAS ONE (09:43)
[2020-06-19] MEDS: MEMANTINE HCL 10 MG TABLET PO SCH ×2 (10:13→22:01)
[2020-06-19] MEDS: CARBIDOPA/LEVODOPA 25/100 TAB PO SCH ×3 (10:13→22:00)
[2020-06-19] MEDS: CYANOCOBALAMIN 1,000 MCG TAB PO SCH (10:13)
[2020-06-19] MEDS: LACTOBACILLUS/ACIDOPHILUS TAB PO SCH (10:13)
[2020-06-19] MEDS: DULOXETINE 20 MG CAP PO SCH (10:13)
[2020-06-19] MEDS: CLOPIDOGREL 75 MG TABLET PO SCH (10:13)
[2020-06-19] MEDS: ASCORBIC ACID 500 MG TABLET PO SCH (10:13)
[2020-06-19] MEDS: AMLODIPINE 10 MG TAB PO SCH (10:14)
[2020-06-19] MEDS: MAGNESIUM OXIDE 400 MG TAB PO SCH (10:14)
[2020-06-19] MEDS: ASPIRIN EC 81 MG TAB PO SCH (10:14)
[2020-06-19] MEDS: ENOXAPARIN 40 MG/0.4 ML SQ SCH (11:24)
--- NOTE | 2020-06-19 14:35 | RAD REPORT ---
EXAM DESCRIPTION: RAD - Barium Swallow Modified - 06/19/2020 1:50 pm CLINICAL HISTORY: s/p stroke COMPARISON: None. TECHNIQUE: The patient was given liquid, semi-solid and solid forms of barium. Lateral view fluorosc opic imaging was performed in conjunction with speech pathology service. FINDINGS: Cineloop acquisitions: 22 Fluoro time: 4 minutes 19 seconds laryngeal pentration : not cleared with thin pharyngeal residue: vallecular, priform mild with consistencies IMPRESSION: Modified barium swallow as summarized above and fully detailed on speech pathology repor luis a
--- NOTE | 2020-06-19 16:14 | P.PN ---
Subjective Date of Service: 06/19/20 Chief Complaint: Fall, generalized weakness. Subjective: Improving ( reports patient is more alert, moving around a little bit better. had nosebleed today - was picking at nose yesterday, has h/o nosebleeds) Review of Systems 10-point ROS is otherwise unremarkable Physical Examination - Vital Signs Temperature: 97.3 F Blood Pressure: 148/83 Pulse: 97 Respirations: 15 Pulse Ox (%): 100 Assessment & Plan Physician Review Additional Text: Physical Exam Gen: In no apparent distress, slight lethargy HEENT: sclera anicteric Pulm: CTAB, nonlabored on room air CV: regular rate/rhythm, no edema Abd: Soft, Non-distended, No tenderness Ext: No rashes, No tenderness/swelling Neuro: R sided weak > L, R lower facial droop, word finding difficulty Problem List: Acute CVA (cerebrovascular accident) Parkinsons disease Dementia Fall Continue aspirin 162 mg daily, Plavix and folic acid. Spouse states patient experiences myalgia with statins, LDL: 134. Patient started on Zetia. Echocardiogram has not been done yet. No staff to perform due to weather Dr. Clark consulted - agree with ongoing treatment, will benefit from rehab, inpt vs SNF Patient tolerating pureed diet. Crush medications and give in pureed diet for now. speech therapy to eval today, modified barium ordered Continue home medications / parkinson meds Patient started on amlodipine for hypertension. Hydralazine p.r.n. for BP spikes. PT evaluating patient - max assist, takes a few steps reports waiting to hear back regarding possible inpatient rehab, otherwise will need skilled rehab and is in agreement Per EMR review: they are also looking at a long-term care placement at [place]. likely needs locked / memory unit nosebleed - for >30minutes despite holding pressure, slowly improved. afrin x 2 sprays ordered, monitor closely VTE: hold lovenox prophylaxis given bleed Code: full Dispo: pending possible inpatient rehab eval/approval, otherwise skilled rehab. awaiting on echocardiogram as well Time Spent Managing Pts Care (In Minutes): 35
[2020-06-19] MEDS: MELATONIN 3 MG TABLET PO SCH (21:00)
[2020-06-19] MEDS: EZETIMIBE 10 MG TAB PO SCH (22:00)
[2020-06-19] MEDS: ATORVASTATIN 20 MG TAB PO SCH (22:01)
[2020-06-20 06:21] LABS: Magnesium 2.4 mg/dL (1.8-2.4); Potassium 3.8 mmol/L (3.5-5.1)
[2020-06-20] MEDS: MAGNESIUM OXIDE 400 MG TAB PO SCH (09:00)
[2020-06-20] MEDS: ASPIRIN EC 81 MG TAB PO SCH (10:17)
[2020-06-20] MEDS: LACTOBACILLUS/ACIDOPHILUS TAB PO SCH (10:18)
[2020-06-20] MEDS: DULOXETINE 20 MG CAP PO SCH (10:18)
[2020-06-20] MEDS: CARBIDOPA/LEVODOPA 25/100 TAB PO SCH ×3 (10:19→22:13)
[2020-06-20] MEDS: MEMANTINE HCL 10 MG TABLET PO SCH ×2 (10:19→22:13)
[2020-06-20] MEDS: AMLODIPINE 10 MG TAB PO SCH (10:19)
[2020-06-20] MEDS: CYANOCOBALAMIN 1,000 MCG TAB PO SCH (10:20)
[2020-06-20] MEDS: CLOPIDOGREL 75 MG TABLET PO SCH (10:20)
[2020-06-20] MEDS: ASCORBIC ACID 500 MG TABLET PO SCH (10:20)
--- NOTE | 2020-06-20 12:08 | ECHO ---
HEIGHT: 5 ft 6 in WEIGHT: 181 lb 3.2 oz DATE OF STUDY: 06/19/[address]: valentin matthews 2-DIMENSIONAL: YES M.MODE: YES DOPPLER: YES COLOR FLOW: YES TDS: NO PORTABLE: NO DEFINITY: NO BUBBLE STUDY: NO DIAGNOSIS: STROKE CARDIAC HISTORY: CATHERIZATION: SURGERY: PROSTHETIC VALVE: PACEMAKER: MEASUREMENTS (cm) DIASTOLIC (NORMALS) SYSTOLIC (NORMALS) IVSd 1.1 (0.6-1.2) LA Diam (1.9-4.0) LVEF 64% LVIDd 3.5 (3.5-5.7) LVIDs 2.3 (2.0-3.5) %FS 34% LVPWd 1.2 (0.6-1.2) Ao Diam 3.1 (2.0-3.7) 2 DIMENSIONAL ASSESSMENT: RIGHT ATRIUM: LEFT ATRIUM: RIGHT VENTRICLE: LEFT VENTRICLE: TRICUSPID VALVE: MITRAL VALVE: PULMONIC VALVE: AORTIC VALVE: PERICARDIAL EFFUSION: AORTIC ROOT: LEFT VENTRICULAR WALL MOTION: DOPPLER/COLOR FLOW: COMMENTS: NORMAL 2D ECHO WITH DOPPLER. NO WALL MOTION ABNORMALITY. NO THROMBUS. NO VEGETATION. TECHNOLOGIST: ZEINAB CASPER
[2020-06-20] MEDS: NA CHLORIDE 0.9% 1,000 ML IV SCH (17:48)
--- NOTE | 2020-06-20 18:10 | P.PN ---
Subjective Date of Service: 06/20/20 Chief Complaint: Fall, generalized weakness. Subjective: Improving (Doing better, speech has improved) Review of Systems 10-point ROS is otherwise unremarkable Physical Examination - Vital Signs Temperature: 97.6 F Blood Pressure: 134/81 Pulse: 102 Respirations: 18 Pulse Ox (%): 94 Assessment & Plan Physician Review Additional Text: Physical Exam Gen: In no apparent distress HEENT: sclera anicteric Pulm: CTAB, nonlabored on room air CV: regular rate/rhythm, no edema Abd: Soft, Non-distended, No tenderness Ext: No rashes, No tenderness/swelling Neuro: R sided weak > L, R lower facial droop, word finding difficulty Problem List: Acute CVA (cerebrovascular accident) Parkinsons disease Dementia Fall hematuria dc aspirin, continue plavix, folic acid small drops of bright red blood in toilet, small ~dime sized blood clot Spouse states patient experiences myalgia with statins, LDL: 134. Patient started on Zetia. Echo done: normal Dr. Clark consulted - agree with ongoing treatment, will benefit from SNF rehab Patient tolerating pureed diet. Crush medications and give in pureed diet for now. Continue home medications / parkinson meds Patient started on amlodipine for hypertension. Hydralazine p.r.n. for BP spikes. PT evaluating patient - max assist, takes a few steps accepted to [place], however patient with new hematuria now eventual long-term care placement at [place]. likely needs locked / memory unit nosebleed yesterday, no repeat bleeding, patient picks at nose / self very remote history of kidney stones, no pain. will check U/S VTE: stopped lovenox yesterday due to nose bleed Code: full Dispo: SNF rehab, awaiting resolution / improvement of hematuria Time Spent Managing Pts Care (In Minutes): 35
[2020-06-20] MEDS: MELATONIN 3 MG TABLET PO SCH (21:00)
[2020-06-20] MEDS: EZETIMIBE 10 MG TAB PO SCH (22:12)
[2020-06-20] MEDS: ATORVASTATIN 20 MG TAB PO SCH (22:12)
[2020-06-21 05:21] LABS: Absolute Lymphocytes (CBC) 1.7 K/uL (0.7-4.9); Basophils % 0.8 % (0-1.3); Hematocrit 38.7 % (39.6-49.0); Lymphocytes % 18.7 % (15.3-44.8); MPV 8.4 fL (7.6-11.3); RBC Red Blood Cell Count 4.16 M/uL (4.33-5.43)
[2020-06-21 05:25] LABS: Protime INR 1.09
[2020-06-21 05:31] LABS: BUN Blood Urea Nitrogen 15 mg/dL (7-18); Bicarbonate 27 mmol/L (21-32); Glucose Level 130 mg/dL (74-106); Magnesium 2.2 mg/dL (1.8-2.4); Potassium 3.8 mmol/L (3.5-5.1); Sodium Level 141 mmol/L (136-145)
[2020-06-21] MEDS: MAGNESIUM OXIDE 400 MG TAB PO SCH (09:00)
--- NOTE | 2020-06-21 11:22 | RAD REPORT ---
EXAM DESCRIPTION: CT - Abdomen Pelvis W/Wo Contrast - 06/21/2020 9:27 am CLINICAL HISTORY: hematuria, eval urinary system Abdominal pain, pelvic pain COMPARISON: No comparisons TECHNIQUE: Axial non-contrast CT imaging was performed. Following this, biphasic contrast enhanced i maging through the abdomen and pelvis was performed with coronal and sagittal reformatted images. All CT scans are performed using dose optimization technique as appropriate and may include automated exposure control or mA/KV adjustment according to patient size. FINDINGS: The lower lung colon are clear. Mild fatty liver is present. No focal mass or biliary dilatation. The spleen, pancreas, adrenal gland s are normal. Several cysts involve the right kidney without evidence of stone or hydronephrosis. No left renal mass or cyst identified. Symmetric excretion of contrast by both kidneys is noted with a normal sized ureters and the urinary bladder. There is mild prostate enlargement projecting into the bladder base with dystrophic calcific ations present. No gross bladder lesion is seen. No bowel obstruction, free fluid or abscess. Significant sigmoid diverticulosis is present with mild thickening of the wall of the sigmoid colon and subtle surrounding inflammation which could indicate a mild diverticulitis. Small fat containing left inguinal hernia. No fracture or aggressive marrow process is seen. IMPRESSION: No pathologic tract abnormality is detected. A mild/early acute diverticulitis of the sigmoid colon is possible.
[2020-06-21] MEDS ORDERED: POTASSIUM CL SA 10 MEQ TAB PO ONE (11:50)
[2020-06-21] MEDS: MEMANTINE HCL 10 MG TABLET PO SCH (12:24)
[2020-06-21] MEDS: LACTOBACILLUS/ACIDOPHILUS TAB PO SCH (12:24)
[2020-06-21] MEDS: AMLODIPINE 10 MG TAB PO SCH (12:25)
[2020-06-21] MEDS: CLOPIDOGREL 75 MG TABLET PO SCH (12:25)
[2020-06-21] MEDS: DULOXETINE 20 MG CAP PO SCH (12:26)
[2020-06-21] MEDS: ASCORBIC ACID 500 MG TABLET PO SCH (12:26)
[2020-06-21] MEDS: CARBIDOPA/LEVODOPA 25/100 TAB PO SCH ×2 (12:29→14:00)
[2020-06-21] MEDS: CYANOCOBALAMIN 1,000 MCG TAB PO SCH (12:30)
[2020-06-21] MEDS: NA CHLORIDE 0.9% 1,000 ML IV SCH (12:46)
[2020-06-21 13:31] VITALS: O2SAT 95
--- NOTE | 2020-06-21 15:49 | P.DS ---
Admission Date: 06/14/20 Discharge Date: 06/21/20 Disposition: TRANSFER TO SNF - REHAB Discharge Condition: GOOD Reason for Admission: acute CVA Consultations: Neurology - Dr. Clark Procedures: CXR (06/14): No acute abnormalities displayed CT Brain (06/14): No acute intracranial abnormality is seen. MRI Brain (06/14): Acute 7 millimeter left basal ganglia infarct. Moderate signal within periventricular, deep and subcortical white matter probably ischemic changes secondary to small vessel disease. Old infarct right internal capsule MRA Brain (06/14): No acute abnormality displayed MRA Neck (06/14): No significant abnormalities displayed Carotid U/S (06/14): Unremarkable exam TTE (06/14): normal echo, no wall motion abnormality. no thrombus. no vegetation. Modified Barium Swallow (06/19): mild oral phase impairment, mild-moderate pharyngeal dysphagia. recommed mechanical soft, chopped meats, nectar-thickened liquids. . CT Urogram (06/21): No pathologic tract abnormality is detected. A mild/early acute diverticulitis of the sigmoid colon is possible. mild prostate enlargement projecting into the bladder base with dystrophic calcifications present. No gross bladder lesion is seen UA (06/21): Ph: 7.5, Specific gravity: 1.025, negative ketones/blood/nitrite/bilirubin/leuk esterase, total protein. COVID -19 (06/21): negative Problem List: Acute CVA (cerebrovascular accident) - left basal ganglia infarct Parkinsons disease Dementia Fall Hematuria Brief History of Present Illness: 75-year-old gentleman with a history of Parkinson's disease was brought to the emergency department because of progressive generalized weakness. According to the spouse patient fell today and could not get due to the weakness and therefore brought him to the emergency department. Patient denied hitting his head during the fall. Workup in the emergency department CT head and MRI of the brain demonstrated acute infarct in the left basal ganglia. His neurologist Dr. Clark was contacted. His EKG demonstrates sinus rhythm. COVID 19 screen is negative. Patient is hospitalized for further management of acute CVA. Hospital Course: Patient was found to have acute stroke. Neurology was consulted. Patient was placed on aspirin, plavix, and lovenox (DVT prophylaxis). Patient's reported prior history of myalgias with statins, so patient was placed on Zetia. Physical therapy and speech therapy were consulted. Patient was recommended to have mechanical soft, chopped / nectar-thickened liquid diet, which he tolerated well. His hospitalization was complicated by a nosebleed - due to patient picking at his nose frequently, which resolved with afrin spray x2 and holding pressure. Patient also had a small blood clot and a few drops of hematuria on 06/20. He was observed overnight, had resolution of hematuria, with a negative UA on 06/[address] Urogram on 06/21 as well. This was briefly reviewed with Dr. Hubbard (Urology) who recommended patient follow up within ~3 weeks in the outpatient office. CT urogram did note a possible mild/early diverticulitis. Patient did not have any abdominal pain / change in bowel habits, or any other signs to suggest diverticulitis so he was not started on any antibiotics / treatment. He can continue to be observed at the SNF, and to consider further treatment if patient becomes symptomatic. He can consider following up with GI in 1-2 months for possible colonoscopy. Vital Signs/Physical Exam: Physical Exam Gen: In no apparent distress HEENT: sclera anicteric Pulm: CTAB, nonlabored on room air CV: regular rate/rhythm, no edema Abd: Soft, Non-distended, No tenderness Ext: No rashes, No tenderness/swelling Neuro: R sided weak > L, R lower facial droop, word finding difficulty, confusion. AAOx1-2 Temp Pulse Resp BP Pulse Ox 97.3 F 75 18 138/75 95 06/21/20 11:42 06/21/20 12:25 06/21/20 11:42 06/21/20 12:25 06/21/20 11:42 Laboratory Data at Discharge: WBC 9.30 K/uL (4.3-10.9) 06/21/20 04:51 Hgb 13.2 g/dL (13.6-17.9) L 06/21/20 04:51 Hct 38.7 % (39.6-49.0) L 06/21/20 04:51 Plt Count 189 K/uL (152-406) 06/21/20 04:51 PT 12.5 SECONDS (9.5-12.5) 06/21/20 04:51 INR 1.09 06/21/20 04:51 APTT 25.0 SECONDS (24.3-36.9) 06/21/20 04:51 Sodium 141 mmol/L (136-145) 06/21/20 04:51 Potassium 3.8 mmol/L (3.5-5.1) 06/21/20 04:51 BUN 15 mg/dL (7-18) 06/21/20 04:51 Creatinine 0.81 mg/dL (0.55-1.3) 06/21/20 04:51 Glucose 130 mg/dL (74-106) H 06/21/20 04:51 Phosphorus 2.6 mg/dL (2.5-4.9) 06/15/20 05:36 Magnesium 2.2 mg/dL (1.8-2.4) 06/21/20 04:51 Total Bilirubin 0.9 mg/dL (0.2-1.0) 06/15/20 05:36 AST 12 U/L (15-37) L 06/15/20 05:36 ALT 23 U/L (12-78) 06/15/20 05:36 Alkaline Phosphatase 75 U/L (45-117) 06/15/20 05:36 Troponin I < 0.02 ng/mL (0.0-0.045) 06/15/20 05:36 Triglycerides 148 mg/dL (<150) 06/15/20 05:36 Cholesterol 214 mg/dL (<200) H 06/15/20 05:36 HDL Cholesterol 50 mg/dL (40-60) 06/15/20 05:36 Cholesterol/HDL Ratio 4.28 06/15/20 05:36 Home Medications: Ascorbic Acid [Vitamin C] 1 tab PO DAILY 06/15/20 Carbidopa/Levodopa [Sinemet 25-100 mg Tablet] 1 each PO TID 06/15/20 Cyanocobalamin (Vitamin B-12) [Vitamin B12] 5,000 mcg PO DAILY 06/15/20 Duloxetine HCl 20 mg PO DAILY 06/15/20 L. Acidophilus/L. Rhamnosus [Probiotic 15 Billion Cell Cap] 1 each PO DAILY 06/15/20 Magnesium Oxide [Magnesium] 400 mg PO DAILY 06/15/20 Melatonin 3 mg PO BEDTIME 06/15/20 Memantine HCl [Namenda] 10 mg PO BID 06/15/20 Amlodipine Besylate [Norvasc] 5 mg PO DAILY 30 Days #30 tablet 06/20/20 Clopidogrel Bisulfate [Plavix*] 75 mg PO DAILY 30 Days #30 tablet 06/20/20 Ezetimibe [Zetia*] 10 mg PO BEDTIME 30 Days #30 tab 06/20/20 New Medications: Amlodipine Besylate [Norvasc] 5 mg PO DAILY 30 Days #30 tablet Clopidogrel Bisulfate [Plavix*] 75 mg PO DAILY 30 Days #30 tablet Ezetimibe [Zetia*] 10 mg PO BEDTIME 30 Days #30 tab Diet: Regular (mechanical soft solids, chopped meats, and nectar-thickened liquids) Activity: Fall precautions Followup: Luis Clark MD [ASSOCIATE-ACTIVE - CAN ADMIT] - NAMITA BREAUX [Primary Care Provider] - Time spent managing pt's care (in minutes): 45
[2020-06-21 17:40] VITALS: BP 134/71; TEMP 97.5
[2020-06-21 19:42] LABS: Urine Appearance CLOUDY; Urine Bilirubin NEGATIVE (NEG); Urine Blood NEGATIVE (NEG); Urine Color YELLOW; Urine Glucose NEGATIVE (NEG); Urine Protein NEGATIVE (NEG); Urine Specific Gravity 1.025 (1.005-1.030); Urine Urobilinogen 0.2 mg/dL (0.2-1.0); Urine pH 7.5 (5.0-7.0)
[2020-06-21 19:47] LABS: Urine Microscopic Reflex NO UMIC
== END 2020-06-21 18:29 | DRG 65 ==
LOC: ER 09:11 → ERHOLD 14:13 → 2ND 19:34
PROVIDERS: ADMIT Internal Medicine; ATTEND Hospitalist
DX: I63.9 Cerebral infarction, unspecified (principal); F05 Delirium due to known physiological condition; G20 Parkinson's disease; F03.90 Unspecified dementia, unspecified severity, without behavioral disturbance, psychotic disturbance, mood disturbance, and anxiety; R53.1 Weakness; R29.810 Facial weakness; R31.9 Hematuria, unspecified; R04.0 Epistaxis; W18.30XA Fall on same level, unspecified, initial encounter; Z79.899 Other long term (current) drug therapy; Z79.02 Long term (current) use of antithrombotics/antiplatelets; Z20.822 Contact with and (suspected) exposure to COVID-19
CPT/HCPCS: 36415; 70450; 70544; 70549; 70553; 71045; 74178; 74230; 80048; 80053; 80061; 80076; 81003; 83735; 83880; 84100; 84443; 84484; 85025; 85610; 85730; 92610; 92611; 93005; 93306; 93880; 94760; 97112; 97116; 97161; 97530; 99285; A9577; J0360; J1650; J3480; J7030; Q9967; U0003

== ENCOUNTER 2020-11-13 06:35 | Emergency (ER) | payer OTHER ==
--- OUTSIDE RECORDS SUMMARY | 2020-11-13 06:39 | XMS REPORT | Continuity of Care Document ---
:[address] [facility] t Address [address] [place] [address] Care Team Providers Name Role Phone Rodrigo Rodriguez DO Primary Care Physician Problems This patient has no known problems. Allergies, Adverse Reactions, Alerts Allergy Allergy Status Severity Reaction(s) Onset Inactive Treating Comm ents Source Name Type Date Date Clinician MethylPR Adverse Active Hiccups [facility]olo [facility] Social History Social Habit Start Date Stop Date Quantity Comments Source Sex Assigned At [birth year] [facility]ist 00:00:00 00:00:00 Medications Ordered Filled Start Stop Current Ordering Indication Dosage Frequency Signature Comments Components Source Medication Medication Date Date Medication? Clinician (SIG) Name Name Aspirin Aspirin Yes Liu [address] [facility] Adult Low Adult Low [facility] Multivitami Multivitami Yes Liu [address] [facility] n Adults n Adults Rodriguez [facility]+ [facility] Vitamin C Vitamin C Yes Liu [address] [facility] Rodriguez [facility] Memantine Memantine Yes Liu [address] [facility] HCl HCl Rodriguez [facility] Sinemet Sinemet Yes Liu [address] [facility] Rodriguez [facility] Cod Liver Cod Liver Yes Liu not [facility] Oil Oil Rodriguez defined [facility] Vitamin B12 Vitamin B12 Yes Liu not [facility] Rodriguez defined [facility] Duloxetine Duloxetine Yes Liu [address] [facility] HCl HCl Rodriguez [facility] Magnesium Magnesium Yes Liu not [facility] Rodriguez defined [facility] Vitamin D3 Vitamin D3 Yes Liu as C [facility] Rodriguez directed [facility] Stress B Stress B Yes Liu not [facility] Rodriguez defined [facility] Immunizations Ordered Filled Immunization Date Status Comments Sourc e Immunization Name Name FluAD FluAD 2019-02-[address] [facility] FluAD FluAD 2018-01-[address] [facility] Procedures This patient has no known procedures. Plan of Care Planned Activity Planned Date Details Comments Source Future Scheduled 2020-12-01 INFLUENZA VACCINE [place] [facility] 00:00:00 [code = INFLUENZA VACCINE] Future Scheduled 2011 65+ PNEUMOCOCCAL [place] [facility] 00:00:00 VACCINE (1 of 1 - PPSV23) [code = 65+ PNEUMOCOCCAL VACCINE (1 of 1 - PPSV23)] Future Scheduled 1996-02-05 [facility] 00:00:00 [code = COLONOSCOPY SCREENING] Future Scheduled 1996-02-05 SHINGLES VACCINES (#1) H [facility] 00:00:00 [code = SHINGLES VACCINES (#1)] Future Scheduled 1964-02-05 Hepatitis C screening [place] [facility] 00:00:00 (procedure) [code = 635073050] Future Scheduled 1958 COVID-19 VACCINE (1) Jose [facility]ess[facility] 00:00:00 [code = COVID-19 VACCINE (1)] Encounters Start End Encounter Admission Attending Care Care Encounter Source Date/Time Date/Time Type Type Clinicians Facility Department ID 2020-08-26 2020-08-26 Outpatient [facility] [id number] [facility] 2020-06-14 2020-06-14 Outpatient [facility] [id number] [facility] 2020-01-29 2020-01-29 [facility] [id number] 2020-01-29 2020-01-29 [facility] [id number] 2020-01-18 2020-01-18 [facility] [id number] 2019-11-30 2019-11-30 [facility] [id number] [facility] 09[facility] 09[facility]30:00 [facility] [place] [facility] [place] [facility] 2019-06-01 2019-06-01 [facility] [id number] [facility] 08[facility]00[facility]00 08:00:00 [facility] [place] [facility] [place] [facility] Medicine l Medicine Outpati ent Clinics 2019-04-10 2019-04-10 [facility] [id number] [facility] 08:00[facility]00 08:00:00 [facility] [place] [facility] [place] [facility] Medicine l Medicine Outpat[facility] ent Clinics 2019-03-06 2019-03-06 [facility] [id number] [facility] 08[facility]20:00 08:20:00 t [place] [facility] [place] [facility] Medicine Out[facility] Clinics 2019-03-01 2019-03-01 [facility] [id number] [facility] 08:07:00 08:07:00 [facility] [place] [facility] [place] [facility] Medicine l Medicine Outpati ent Clinics 2019-02-23 2019-02-23 [facility] [id number] 15:53:00 15:53:00 t [facility] [place] [facility] Medicine l Medicine Outpati ent Clinics 2019-02-23 2019-02-23 [facility] [id number] 10:45:00 10:45:00 t [place] [facility] Medicine Outpati ent Clinics 2019-02-13 2019-02-13 [facility] [id number] 09:15:00 09:15:00 t [place] [facility] - [facility] Medicine Outpati ent Clinics 2018-11-22 2018-11-22 [facility] [id number] 09:38:00 09:38:00 t [place] [facility] - Drive [facility] Medicine Outpati ent Clinics 2018-05-18 2018-05-18 [facility] [id number] 14:00:00 14:00:00 t [place] [facility] [place] [facility] Medicine Outpati ent Clinics 2018-05-05 2018-05-05 [facility] [id number] [address] 08:30:00 08:30:00 t [facility] [place] [facility] Medicine Outpati ent Clinics 2018-01-31 2018-01-31 [facility] [id number] [address] 08:00:[facility] 08:00:00 t [facility] - [facility] Medicine Outpati ent Clinics 2017-10-06 2017-10-06 [facility] [id number] 10:00:00 10:00:00 t [facility] - [facility] Medicine Outpati ent Clinics Results This patient has no known results.
--- NOTE | 2020-11-13 07:38 | RAD REPORT ---
EXAM DESCRIPTION: CT - CTHCSPWOC - 11/13/2020 7:10 am CLINICAL HISTORY: PAINfall, head and neck injury COMPARISON: Brain W/Wo Cont dated 06/14/2020; Head Brain Wo Cont dated 06/14/2020 TECHNIQUE: Axial 5 mm thick images of the head were obtained. Axial 2 mm thick images of the cervic al spine were obtained with sagittal and coronal reconstruction images generated and reviewed. All CT scans are performed using dose optimization technique as appropriate and may include automated exposure control or mA/KV adjustment according to patient size. FINDINGS: No intracranial hemorrhage, mass, edema or acute intracranial finding. No acute cortical b ased infarction. No cortical edema or sulcal effacement. Patient has mild to moderate atrophy. Ventri cles are prominent and do appear to be slightly out of proportion to the amount of volume loss. Greta l pressure hydrocephalus is a possibility and can be correlated with clinical findings. This pattern is stable back to at least June 2020. Patient has very prominent chronic ischemic change througho ut the cerebral white matter. This extends to the right basal ganglia were there is an old lacunar ty pe infarction. Thalamus and brainstem chronic ischemic changes are present to a lesser degree. No ext ra-axial fluid collections. Mastoid air cells and paranasal sinuses are clear. No globe or orbit abno rmality seen. Cervical bodies are normal in height. No subluxation abnormality. There is straightening of the usual cervical lordosis which could be positioning artifact or muscle spasm. C5-6 disc space narrowing see n with endplate spurring. Degenerative changes are present around the dens anterior arch C1 region. F acet joint degenerative changes are present scattered in the cervical spine. Mild bony foraminal encr oachment seen at C5-6. No fracture or acute bony abnormality. Central canal detail is inherently baker ited. No paraspinal mass or hematoma. IMPRESSION: No hemorrhage, edema or acute intracranial finding identifiable. Mild to moderate atrophy is present along with advanced chronic ischemic change throughout the cerebr al white matter with extension into the basal ganglia, thalamus and brainstem tissues. Ventricles appear out of proportion to the amount of volume loss. Normal pressure hydrocephalus is po ssible. This is a stable presentation back to at least June this year. Cervical spine degenerative change with no acute finding.
[2020-11-13 07:50] LABS: Absolute Lymphocytes (CBC) 1.5 K/uL (0.7-4.9); Basophils % 1.2 % (0-1.3); Lymphocytes % 25.3 % (15.3-44.8); MPV 8.6 fL (7.6-11.3); RBC Red Blood Cell Count 4.67 M/uL (4.33-5.43)
[2020-11-13 07:58] LABS: Potassium 4.1 mmol/L (3.5-5.1)
[2020-11-13] MEDS ORDERED: LIDOCAINE 1% W/EPI 1:100,000 MDV 20 ML VIAL ONE (07:58)
--- NOTE | 2020-11-13 08:20 | EDPHYS ---
Physician Documentation [facility] Name: Blair Garcia Age: 75 yrs Sex: Male : 1945 Arrival Date: 11/13/2020 Time: 06:44 Bed 2 Private MD: ED Physician Jagdeep Elizondo HPI: 11/13 07:17 This 75 yrs old Male presents to ER via EMS with complaints of Head kdr Injury-Adult. 07:17 The patient or guardian reports pain. The complaints affect the right side of forehead kdr and right eye. Context of injury: The problem was sustained at a [facility] or assisted living facility. 07:23 Onset: The symptoms/episode began/occurred suddenly, just prior to arrival. Associated kdr signs and symptoms: The patient has no apparent associated signs or symptoms. Severity of symptoms: At their worst the symptoms were mild, in the emergency department the symptoms are unchanged. It is unknown whether or not the patient has had similar symptoms in the past. It is unknown whether or not the patient has recently seen a physician. The patient apparently rolled out of bed at the [facility]. It is unknown if there was an LOC. The patient report that he was after his cat "killer." He knew that he was in a [facility] facility. Historical: - Allergies: 07:43 No Known Allergies; jl7 - Home Meds: 07:43 amlodipine 5 mg tab [Active]; Plavix 75 mg Oral tab [Active]; Cymbalta 20 mg oral cpDR jl7 [Active]; ezetimibe 10 mg oral tab [Active]; memantine 10 mg oral tab [Active]; carbidopa-levodopa 25-100 mg oral TbER [Active]; Depakote Sprinkles 125 mg Oral CDRS [Active]; - PMHx: 07:42 Dementia; Parkinsons; jl7 07:43 Cerebrovascular accident; hyperlipidemia; Hypertensive disorder; jl7 - Immunization history:: Adult Immunizations up to date. - Social history:: Smoking status: Patient denies any tobacco usage or history of. - Immunization history: Last tetanus immunization: unknown. ROS: 07:23 Constitutional: The patient is a poor historian kdr 07:23 Skin: Positive for laceration(s), of the right side of forehead, right episcopal and right eye. 07:23 Unable to obtain ROS due to baseline dementia. Exam: 07:23 Constitutional: This is a well developed, well nourished patient who is awake, alert, kdr and in no acute distress. Head/Face: Normocephalic, atraumatic. Eyes: Pupils equal round and reactive to light, extra-ocular motions intact. Lids and lashes normal. Conjunctiva and sclera are non-icteric and not injected. Cornea within normal limits. Periorbital areas with no swelling, redness, or edema. Neck: Trachea midline, no thyromegaly or masses palpated, and no cervical lymphadenopathy. Supple, full range of motion without nuchal rigidity, or vertebral point tenderness. No Meningismus. Chest/axilla: Normal chest wall appearance and motion. Nontender with no deformity. No lesions are appreciated. Cardiovascular: Regular rate and rhythm with a normal S1 and S2. No gallops, murmurs, or rubs. Normal PMI, no JVD. No pulse deficits. Respiratory: Lungs have equal breath sounds bilaterally, clear to auscultation and percussion. No rales, rhonchi or wheezes noted. No increased work of breathing, no retractions or nasal flaring. Abdomen/GI: Soft, non-tender, with normal bowel sounds. No distension or tympany. No guarding or rebound. No evidence of tenderness throughout. Back: No spinal tenderness. No costovertebral tenderness. Full range of motion. MS/ Extremity: Pulses equal, no cyanosis. Neurovascular intact. Full, normal range of motion. Neuro: Awake and alert, GCS 15, oriented to person, place, time, and situation. Cranial nerves II-XII grossly intact. Motor strength 5/5 in all extremities. Sensory grossly intact. Psych: Awake, alert, with orientation to person, place and time. Behavior, mood, and affect are within normal limits. 07:27 ECG was reviewed by the Attending Physician. kdr Vital Signs: 06:46 BP 140 / 83; Pulse 71; Resp 18; Temp 98.3(O); Pulse Ox 100% on R/A; ak2 07:00 BP 140 / 87; Pulse 74; Resp 15; Pulse Ox 100% ; jl7 07:53 BP 143 / 63; Pulse 79; Resp 15; Pulse Ox 99% ; Pain 0/10; jl7 08:30 BP 150 / 76; Pulse 77; Resp 15; Pulse Ox 99% ; Weight 79.38 kg; Height 5 ft. 6 in. jl7 (167.64 cm); Pain 0/10; 09:25 BP 148 / 79; Pulse 77; Resp 15 S; Pulse Ox 100% on R/A; jl7 08:30 Body Mass Index 28.25 (79.38 kg, 167.64 cm) jl7 Daysi Coma Score: 06:46 Eye Response: spontaneous(4). Verbal Response: confused(4). Motor Response: obeys ak2 commands(6). Total: 14. 07:23 Eye Response: spontaneous(4). Verbal Response: oriented(5). Motor Response: obeys kdr commands(6). Total: 15. 07:53 Eye Response: spontaneous(4). Verbal Response: oriented(5). Motor Response: obeys jl7 commands(6). Total: 15. 08:30 Eye Response: spontaneous(4). Verbal Response: oriented(5). Motor Response: obeys jl7 commands(6). Total: 15. 09:25 Eye Response: spontaneous(4). Verbal Response: oriented(5). Motor Response: obeys jl7 commands(6). Total: 15. Trauma Score (Adult): 07:00 Eye Response: spontaneous(1); Verbal Response: oriented(1); Motor Response: obeys jl7 commands(2); Systolic BP: > 89 mm Hg(4); Respiratory Rate: 10 to 29 per min(4); Daysi Score: 15; Trauma Score: 12 Laceration: 08:29 Wound Repair of 2.5cm ( 1.0in ) subcutaneous laceration to outer aspect of right kb eyebrow. Irregularly shaped.. Distal neuro/vascular/tendon intact. Anesthesia: Wound infiltrated with 2 mls of 1% lidocaine w/ Epi. Wound prep: Extensive cleansing with hibiclenz by me, Wound irrigation with saline by mn. Skin closed with 5 5-0 fast absorbing gut using simple sutures and sterile technique. Patient tolerated well. MDM: 08:20 Patient medically screened. kdr 10:05 Data reviewed: vital signs, nurses notes, lab test result(s), EKG, radiologic studies. kdr Counseling: I had a detailed discussion with the patient and/or guardian regarding: the historical points, exam findings, and any diagnostic results supporting the discharge/admit diagnosis, lab results, radiology results, the need for outpatient follow up. 11/13 07:16 Order name: CBC with Diff; Complete Time: 08:06 kdr 11/13 07:16 Order name: Chem 7; Complete Time: 08:06 kdr 11/13 06:48 Order name: CT Head C Spine; Complete Time: 08:06 kdr 11/13 07:24 Order name: Dressing - Wound; Complete Time: 08:58 kb 11/13 07:24 Order name: Gloves, Sterile; Complete Time: 07:41 kb 11/13 07:24 Order name: Setup Suture Tray; Complete Time: 07:41 kb EC: Rate is 71 beats/min. Rhythm is regular, Sinus Rhythm with No ectopy. QRS [place] is kdr Normal. VA interval is normal. QRS interval is normal. QT interval is normal. Clinical impression: NSR w/ Non-specific ST/T Changes. Administered Medications: 08:02 Drug: Lidocaine-Epinephrine -1%: (1:100,000) 1 vials {Note: administered by tina Ramirez MANAGER GAMES.} Volume: 20 ml; Route: Infiltration; 08:58 Follow up: Response: No adverse reaction jlVimal 08:53 Drug: Tetanus-Diphtheria Toxoid Adult 0.5 ml {Heel Pricker: [employer]. Exp: jl7 07/05/2022. Lot #: [id number]. } Route: IM; Site: left deltoid; 08:58 Follow up: Response: No adverse reaction jl7 Disposition: 10:05 Co-signature as Attending Physician, Jagdeep Elizondo MD I agree with the assessment and kdr plan of care. Disposition Summary: 11/13/20 08:20 Discharge Ordered Location: Home kdr Problem: new kdr Symptoms: have improved kdr Condition: Stable kdr Diagnosis - Unspecified superficial injury of unspecified part of head, initial encounter - kdr right episcopal - Facial laceration kdr Followup: kdr - With: Private Physician - When: 2 - 3 days - Reason: If symptoms return, Further diagnostic work-up, Recheck today's complaints, Continuance of care, Re-evaluation by your physician Discharge Instructions: - Discharge Summary Sheet kdr - Facial Laceration, [id number] kdr - Sutures, [place], or Adhesive Wound Closure, [id number] kdr - Head Injury, Adult, [id number] kdr Forms: - Medication Reconciliation Form kdr - Thank You Letter kdr - SBAR form mt Signatures: Dispatcher [employer] Ashley Livingston, Jagdeep Reeves MD MD kdr Leal, Jahala, RN RN jl7 Corrections: (The following items were deleted from the chart) 07:43 07:42 Immunization history: Adult Immunizations Vimal jl7
--- NOTE | 2020-11-13 08:20 | ER ---
Nurse's Notes [facility] Name: Blair Garcia Age: 75 yrs Sex: Male : 1945 Arrival Date: 11/13/2020 Time: 06:44 Bed 2 Private MD: Diagnosis: Unspecified superficial injury of unspecified part of head, initial encounter-right yarsanism;Facial laceration Presentation: 11/13 06:46 Chief complaint: Patient states: fall with head injury, no LOC, +plavix. bleeding ak2 controlled at this time. Coronavirus screen: Client denies travel out of the [place] in the last 14 days. At this time, the client does not indicate any symptoms associated with coronavirus-19. Ebola Screen: Patient negative for fever greater than or equal to 101.5 degrees Fahrenheit, and additional compatible Ebola Virus Disease symptoms Patient denies exposure to infectious person. Patient denies travel to an Ebola-affected area in the 21 days before illness onset. No symptoms or risks identified at this time. Mechanism of Injury: resulted from a fall, from bed. Initial Sepsis Screen: Does the patient meet any 2 criteria? No. Patient's initial sepsis screen is negative. Does the patient have a suspected source of infection? No. Patient's initial sepsis screen is negative. Risk Assessment: Do you want to hurt yourself or someone else? Patient reports no desire to harm self or others. 06:46 Method Of Arrival: EMS: [facility] ak2 06:46 Acuity: SOFIA 3 ak2 07:42 Onset of symptoms was November 13, 2020. Transition of care: patient was received from [facility] another setting of care (long-term care facility), [facility]. 07:53 Care prior to arrival: None. Trauma event details: [place] [address], Injury occurred: at home. Injury occurred: November 13, 2020 Injury occurred at: 05:20. Triage Assessment: 07:00 General: Appears in no apparent distress. uncomfortable, Behavior is calm, cooperative, [facility] appropriate for age. Pain: Denies pain. Neuro: Level of Consciousness is awake, alert, obeys commands, Reports none. Cardiovascular: Patient's skin is warm and dry. Respiratory: Airway is patent Respiratory effort is even, unlabored, Respiratory pattern is regular, symmetrical. Derm: Skin is pink, warm \T\ dry. Injury Description: Laceration sustained to outer aspect of right eyebrow is 0.5 to 2.5 cm long, not bleeding. Trauma Activation: Alert Physician: ED Physician; Name: Mikhail; Notified At: 07:00; Arrived At: Physician: General Surgeon; Name: ; Notified At: 07:00; Arrived At: Physician: Radiology; Name: ; Notified At: 07:00; Arrived At: Physician: Respiratory; Name: ; Notified At: 07:00; Arrived At: Physician: Lab; Name: ; Notified At: 07:00; Arrived At: Historical: - Allergies: 07:43 No Known Allergies; jl7 - Home Meds: 07:43 amlodipine 5 mg tab [Active]; Plavix 75 mg Oral tab [Active]; Cymbalta 20 mg oral cpDR jl7 [Active]; ezetimibe 10 mg oral tab [Active]; memantine 10 mg oral tab [Active]; carbidopa-levodopa 25-100 mg oral TbER [Active]; Depakote Sprinkles 125 mg Oral CDRS [Active]; - PMHx: 07:42 Dementia; Parkinsons; jl7 07:43 Cerebrovascular accident; hyperlipidemia; Hypertensive disorder; jl7 - Immunization history:: Adult Immunizations up to date. - Social history:: Smoking status: Patient denies any tobacco usage or history of. - Immunization history: Last tetanus immunization: unknown. Screenin:00 Abuse screen: Denies threats or abuse. Denies injuries from another. Tuberculosis jl7 screening: No symptoms or risk factors identified. 08:06 Nutritional screening: No deficits noted. Fall Risk Fall in past 12 months (25 points). jl7 Total Church Fall Scale indicates Low Risk Score (25-44 pts). Fall prevention measures have been instituted. Side Rails Up X 2 Placed close to Nursing Station Frequent Obs/Assesments occuring Family Present and informed to notify staff if they need to leave bedside As available Patient and Family Educated on Fall Prevention Program and strategies. Primary Survey: 07:00 NO uncontrolled hemorrhage observed. A: The patient is alert. Airway: patent. jl7 Breathing/Chest: Respiratory pattern: regular, Respiratory effort: spontaneous, unlabored, Breath sounds: clear, bilaterally. Chest inspection: symmetrical rise and fall of the chest. Circulation: Cardiac rhythm: sinus rhythm Heart tones present. Pulses: palpable right radial artery and left radial artery. Skin color: pink, Skin temperature: warm. Disability Alert. Exposure/Environment: A warming method has been applied: A warm blanket has been provided to the patient. 07:30 Reassessment Breathing/Chest Respiratory pattern Regular Respiratory effort Spontaneous jl7 Unlabored Breath sounds Clear Chest inspection Symmetrical Circulation Color [place] Disability Alert. Assessment: 07:00 General: See triage assessment. jl7 07:53 General: Appears in no apparent distress. uncomfortable, Behavior is calm, cooperative, jl7 appropriate for age. 08:44 Reassessment: Patient appears in no apparent distress at this time. No changes from jl7 previously documented assessment. Patient and/or family updated on plan of care and expected duration. Pain level reassessed. Patient is alert, oriented x 3, equal unlabored respirations, skin warm/dry/pink. 09:01 Reassessment: Awaiting transportation back to correction. jl7 09:45 Reassessment: [facility] at bedside to transport pt. 7 Vital Signs: 06:46 BP 140 / 83; Pulse 71; Resp 18; Temp 98.3(O); Pulse Ox 100% on R/A; ak2 07:00 BP 140 / 87; Pulse 74; Resp 15; Pulse Ox 100% ; jl7 07:53 BP 143 / 63; Pulse 79; Resp 15; Pulse Ox 99% ; Pain 0/10; jl7 08:30 BP 150 / 76; Pulse 77; Resp 15; Pulse Ox 99% ; Weight 79.38 kg; Height 5 ft. 6 in. jl7 (167.64 cm); Pain 0/10; 09:25 BP 148 / 79; Pulse 77; Resp 15 S; Pulse Ox 100% on R/A; jl7 08:30 Body Mass Index 28.25 (79.38 kg, 167.64 cm) jl7 Daysi Coma Score: 06:46 Eye Response: spontaneous(4). Verbal Response: confused(4). Motor Response: obeys ak2 commands(6). Total: 14. 07:23 Eye Response: spontaneous(4). Verbal Response: oriented(5). Motor Response: obeys kdr commands(6). Total: 15. 07:53 Eye Response: spontaneous(4). Verbal Response: oriented(5). Motor Response: obeys jl7 commands(6). Total: 15. 08:30 Eye Response: spontaneous(4). Verbal Response: oriented(5). Motor Response: obeys jl7 commands(6). Total: 15. 09:25 Eye Response: spontaneous(4). Verbal Response: oriented(5). Motor Response: obeys jl7 commands(6). Total: 15. Trauma Score (Adult): 07:00 Eye Response: spontaneous(1); Verbal Response: oriented(1); Motor Response: obeys jl7 commands(2); Systolic BP: > 89 mm Hg(4); Respiratory Rate: 10 to 29 per min(4); Daysi Score: 15; Trauma Score: 12 ED Course: 06:44 Patient arrived in ED. ak2 06:47 Jagdeep Elizondo MD is Attending Physician. kdr 06:49 Triage completed. ak2 07:00 Arm band placed on right wrist. jl7 07:00 Patient has correct armband on for positive identification. Bed in low position. Call jl7 light in reach. Side rails up X2. 07:00 Patient maintains SpO2 saturation greater than 95% on room air. Thermoregulation: warm jl7 blanket given to patient. 07:09 CT Head C Spine In Process Unspecified. EDMS 07:35 Ben Gabriel, JAZIEL is Primary Nurse. jl7 07:40 Initial lab(s) drawn, by co, sent to lab. EKG done, by ED staff, reviewed by Jagdeep Elizondo MD. 08:05 Assist provider with laceration repair on outer aspect of right eyebrow that was 2.5 jl7 cm. or less using sutures. Set up tray. Performed by Ashley APPIAH Dressed with band aid, Patient tolerated well. 09:00 IV discontinued, intact, bleeding controlled, No redness/swelling at site. Pressure jl7 dressing applied. Administered Medications: 08:02 Drug: Lidocaine-Epinephrine -1%: (1:100,000) 1 vials {Note: administered by tina Ramirez APPLICATION PACKAGER.} Volume: 20 ml; Route: Infiltration; 08:58 Follow up: Response: No adverse reaction jl 08:53 Drug: Tetanus-Diphtheria Toxoid Adult 0.5 ml {Hedge Fund Manager: [employer]. Exp: jl7 07/05/2022. Lot #: [id number]. } Route: IM; Site: left deltoid; 08:58 Follow up: Response: No adverse reaction jl7 Intake: 09:58 PO: 0ml; IV: 0ml; Tubes: 0ml (); Total: 0ml. Output: 09:58 Urine: 0ml; Gastric: 0ml; Stool: 0; EBL: 0ml; Drainage: 0ml; Other: 0; Total: 0ml. jl Outcome: 08:20 Discharge ordered by . katia 09:00 Discharged to correction. Report called to Joanie jlVimal 09:00 Condition: stable 09:00 Discharge instructions given to patient, correction, Instructed on discharge instructions, follow up and referral plans. Demonstrated understanding of instructions, follow-up care. 09:58 Patient's length of stay was not longer than 2 hours. 09:59 Patient left the ED. Signatures: Dispatcher [employer] EDMS Jagdeep Elizondo MD MD kdr Leal, Jahala, RN RN Sabino Hampton Corrections: (The following items were deleted from the chart) 07:43 07:42 Immunization history: Adult Immunizations jl7
[2020-11-13] MEDS ORDERED: TETANUS & DIPHTHERIA TOX,ADULT 0.5 ML VIAL ONE (09:10)
[2020-11-13 10:04] VITALS: TEMP 98.3
[2020-11-13 10:11] VITALS: BP 148/79; O2SAT 100
== END 2020-11-13 09:59 | disposition home or self-care (01) ==
LOC: ER 06:35
PROC: 0JQ10ZZ Repair Face Subcutaneous Tissue and Fascia, Open Approach (ICD-10-PCS; principal; 2020-11-13)
DX: S01.81XA Laceration without foreign body of other part of head, initial encounter (principal); W06.XXXA Fall from bed, initial encounter; Y92.122 Bedroom in nursing home as the place of occurrence of the external cause; Z23 Encounter for immunization; Z79.01 Long term (current) use of anticoagulants; G20 Parkinson's disease; F02.80 Dementia in other diseases classified elsewhere, unspecified severity, without behavioral disturbance, psychotic disturbance, mood disturbance, and anxiety; I10 Essential (primary) hypertension
CPT/HCPCS: 36415; 70450; 72125; 80048; 85025; 90471; 90714; 93005; 99284; G0390

== ENCOUNTER 2023-02-14 08:54 | Inpatient (IN) | payer OTHER ==
--- OUTSIDE RECORDS SUMMARY | 2023-02-14 08:58 | XMS REPORT | Continuity of Care Document ---
:1945 Author Organization [facility] t Address [address] [place] [address] Care Team Providers Name Role Phone Liu Rodriguez DO Primary Care Physician [phone] Liu Rodriguez Attending Clinician Unavailable Payers Payer Name Policy Type Policy Number Effective Date Expiration Date S bryan MEDICARE MB [id number] [facility] [id number] [facility] Spi rit [facility] MEDICARE MB [id number] [facility] NOVITAS [facility] COLONIAL PREET C1 [id number] Common Spi rit [facility] C1 [id number] Common Spi rit - [facility] MEDICARE MB [id number] [facility] NOVITAS [facility] PREET C1 [id number] Common Spi rit [facility] MEDICARE MB [id number] [facility] Problems Condition Condition Condition Status Onset Resolution Last Treating Co mments Source Name Details Category Date Date Treatment Clinician Date Obesity Body mass Problem Active Commo n index Spirit (BMI) of - [facility] [address] [facility] [facility] Basal cell Basal cell Problem Active C ommon carcinoma carcinoma Spir it of skin of skin - [facility] Hyperlipid Hyperlipid Problem Active C ommon emia emia [facility] Diastasis Rectus Problem Active Common of muscle diastasis Spir it - [facility] [id number] Vascular Problem Active Com mon [id number] dementia Spirit without - [facility] behavioral [facility] Elevated Elevated Problem Active Commo n blood blood [facility] pressure pressure - [facility] reading reading in [facility] diagnosis without Medica l of diagnosis Center hypertensi of on hypertensi on [id number] Parkinson Problem Active Comm on disease Spirit [facility] History of Personal Problem Active Com mon polyp of history of Spir it colon colonic - [facility] polyps [facility] [id number] Tremor of Problem Active Com mon left hand [facility] [id number] Abnormal Problem Active Commo n gait [facility] [id number] Memory Problem Active Common change [facility] [id number] Fatigue, Problem Active Commo n unspecifie Spirit d type [facility] Allergies, Adverse Reactions, Alerts Allergy Allergy Status Severity Reaction(s) Onset Inactive Treating Comm ents Source Name Type Date Date Clinician methylpr methylpr Active Hiccups Commo n ednisolo ednisolo Spirit ne ne [facility] Social History Social Habit Start Date Stop Date Quantity Comments Source History of Tobacco [facility] - Use [facility] Sexual orientation Method [facility] Sex Assigned At [birth year] [facility] 00:00:00 00:00:00 Smoking Status Start Date Stop Date Source Tobacco smoking consumption [facility] unknown Never Smoker Common [facility] Medications Ordered Filled Start Stop Current Ordering Indication Dosage Frequency Signature Comments Components Source Medication Medication Date Date Medication? Clinician (SIG) Name Name Stress B Stress B No Stress B Vitamin D3 Vitamin D3 No Vitamin D3 125 MCG 125 MCG 125 MCG (5000 UT) (5000 UT) (5000 UT) Cod Liver Cod Liver No Cod Liver Oil Oil Oil Memantine Memantine No 1{table QD Memantine HCl 5 MG HCl 5 MG t} HCl 5 MG Multivitami Multivitami No QD Multivitam n Adults n Adults in Adults 50+ - 50+ - 50+ - Multivitami Multivitami No QD Multivitam n Adults n Adults in Adults 50+ - 50+ - 50+ - Vitamin C Vitamin C No 1{table QD Vitamin C 1000 MG 1000 MG t} 1000 MG Aspirin Aspirin No 1{table QD Aspirin Adult Low Adult Low t} Adult Low Dose 81 MG Dose 81 MG Dose 81 MG Duloxetine Duloxetine No 1{capsu QD Duloxetine HCl 20 MG HCl 20 MG le} HCl 20 MG Magnesium Magnesium No Magnesium Vitamin D3 Vitamin D3 No Vitamin D3 125 MCG 125 MCG 125 MCG (5000 UT) (5000 UT) (5000 UT) Stress B Stress B No Stress B Vitamin B12 Vitamin B12 No Vitamin B12 Cod Liver Cod Liver No Cod Liver Oil Oil Oil Aspirin Aspirin Yes Liu 1 tablet Com mon Adult Low Adult Low Rodriguez Spir it Dose Dose - [facility] Multivitami Multivitami Yes Liu 2 tabs Common n Adults n Adults Rodriguez Spirit 50+ 50+ - [facility] Vitamin C Vitamin C Yes Liu 1 tablet Common Rodriguez Spirit [facility] Memantine Memantine Yes Liu 1 tablet Common HCl HCl Rodriguez [facility] Sinemet Sinemet Yes Liu 1 tablet Com mon Rodriguez [facility] Cod Liver Cod Liver Yes Liu not Com mon Oil Oil Rodriguez defined [facility] Vitamin B12 Vitamin B12 Yes Liu not Common Rodriguez defined Spirit [facility] Duloxetine Duloxetine Yes Liu 1 capsule Common HCl HCl Rodriguez [facility] Magnesium Magnesium Yes Liu not Com mon Rodriguez defined Spirit [facility] Vitamin D3 Vitamin D3 Yes Liu as C ommon Rodriguez directed [facility] Stress B Stress B Yes Liu not Commo n Rodriguez defined Spirit [facility] Sinemet Sinemet No 1{table TID Sinemet 25-100 MG 25-100 MG t} 25-100 MG Memantine Memantine No 1{table QD Memantine HCl 5 MG HCl 5 MG t} HCl 5 MG Sinemet Sinemet No 1{table TID Sinemet 25-100 MG 25-100 MG t} 25-100 MG Duloxetine Duloxetine No 1{capsu QD Duloxetine HCl 20 MG HCl 20 MG le} HCl 20 MG Aspirin Aspirin No 1{table QD Aspirin Adult Low Adult Low t} Adult Low Dose 81 MG Dose 81 MG Dose 81 MG Vitamin C Vitamin C No 1{table QD Vitamin C 1000 MG 1000 MG t} 1000 MG Multivitami Multivitami No QD Multivitam n Adults n Adults in Adults 50+ - 50+ - 50+ - Vitamin B12 Vitamin B12 No Vitamin B12 Magnesium Magnesium No Magnesium Vitamin D3 Vitamin D3 No Vitamin D3 125 MCG 125 MCG 125 MCG (5000 UT) (5000 UT) (5000 UT) Cod Liver Cod Liver No Cod Liver Oil Oil Oil Memantine Memantine No 1{table QD Memantine HCl 5 MG HCl 5 MG t} HCl 5 MG Stress B Stress B No Stress B Sinemet Sinemet No 1{table TID Sinemet 25-100 MG 25-100 MG t} 25-100 MG Duloxetine Duloxetine No 1{capsu QD Duloxetine HCl 20 MG HCl 20 MG le} HCl 20 MG Aspirin Aspirin No 1{table QD Aspirin Adult Low Adult Low t} Adult Low Dose 81 MG Dose 81 MG Dose 81 MG Vitamin C Vitamin C No 1{table QD Vitamin C 1000 MG 1000 MG t} 1000 MG Multivitami Multivitami No QD Multivitam n Adults n Adults in Adults 50+ - 50+ - 50+ - Vitamin B12 Vitamin B12 No Vitamin B12 Magnesium Magnesium No Magnesium Vitamin D3 Vitamin D3 No Vitamin D3 125 MCG 125 MCG 125 MCG (5000 UT) (5000 UT) (5000 UT) Cod Liver Cod Liver No Cod Liver Oil Oil Oil Memantine Memantine No 1{table QD Memantine HCl 5 MG HCl 5 MG t} HCl 5 MG Stress B Stress B No Stress B Vitamin B12 Vitamin B12 No Vitamin B12 Vitamin C Vitamin C No 1{table QD Vitamin C 1000 MG 1000 MG t} 1000 MG Aspirin Aspirin No 1{table QD Aspirin Adult Low Adult Low t} Adult Low Dose 81 MG Dose 81 MG Dose 81 MG Duloxetine Duloxetine No 1{capsu QD Duloxetine HCl 20 MG HCl 20 MG le} HCl 20 MG Magnesium Magnesium No Magnesium Sinemet Sinemet No 1{table TID Sinemet 25-100 MG 25-100 MG t} 25-100 MG Vital Signs Vital Name Observation Time Observation Value Comments Source height 2020-01-29 11:20:00 66 [in_i] [facility] weight 2020-01-29 11:20:00 190.0 [lb_av] [facility] temperature 2020-01-29 11:20:00 97.4 [degF] [facility] bmi 2020-01-29 11:20:00 30.66 kg/m2 Common S [facility] oximetry 2020-01-29 11:20:00 96 % Common S [facility] respiratory rate 2020-01-29 11:20:00 18 /min Comm on [facility] blood pressure 2020-01-29 11:20:00 138 mm[Hg] Common [facility] - systolic [facility] blood pressure 2020-01-29 11:20:00 80 mm[Hg] Common [facility] - diastolic [facility] Procedures This patient has no known procedures. Plan of Care Planned Activity Planned Date Details Comments Source Future Scheduled 2023-02-13 COVID-19 VACCINE (#1) [facility] Test 10:48:12 [code = COVID-19 VACCINE (#1)] Future Scheduled 2023-02-13 SHINGLES VACCINES (1 Met [facility] Test 10:48:12 of 2) [code = SHINGLES VACCINES (1 of 2)] Future Scheduled 2023-02-13 RSV VACCINES > 60 YR Met [facility] Test 10:48:12 (1 - 1-dose 60+ series) [code = RSV VACCINES > 60 YR (1 - 1-dose 60+ series)] Future Scheduled 2023-02-13 65+ PNEUMOCOCCAL [facility] Test 10:48:12 VACCINE (1 - PCV) [code = 65+ PNEUMOCOCCAL VACCINE (1 - PCV)] Future Scheduled 2023-02-13 INFLUENZA VACCINE (#1) [facility] Test 10:48:12 [code = INFLUENZA VACCINE (#1)] Encounters Start End Encounter Admission Attending Care Care Encounter Source Date/Time Date/Time Type Type Clinicians Facility Department ID 2021-05-28 Outpatient Rodriguez, [facility] [id number] Common 14:19:03 Liu [id number] [facility] 2021-05-28 Outpatient Rodriguez, [facility] [id number] Common 13:36:42 Liu [id number] [facility] 2021-05-28 Outpatient Rodriguez, [facility] [id number] Common 11:04:03 Liu [id number] [facility] 2020-08-26 2020-08-26 (TEL) [facility]LMLC [facility] [id number] Co mmon 00:00:00 00:00:00 [facility] 2020-06-14 2020-06-14 (TEL) STLMLC STLMLC [id number] Co mmon 00:00:00 00:00:00 [facility] 2020-01-29 2020-01-29 (TEL) STLMLC STLMLC [id number] Co mmon 00:00:00 00:00:00 [facility] 2020-01-29 2020-01-29 OFFICE STLMLC STLMLC [id number] Co mmon 00:00:00 00:00:00 VISIT [facility] LEVEL 4 [facility] 2020-01-18 2020-01-18 (TEL) STLMLC STLMLC [id number] Co mmon 00:00:00 00:00:00 [facility] 2019-11-30 2019-11-30 [id number] Common 09:30:00 09:30:[address] [facility] 2019-06-01 2019-06-01 [facility] [id number] Common 08:00:00 08:00:[address] [facility] 2019-04-10 2019-04-10 [facility] [id number] Common 08:00:00 08:00:[address] [facility] 2019-03-06 2019-03-06 [facility] [id number] Common 08:20:00 08:20:[address] [facility] 2019-03-01 2019-03-01 [facility] [id number] Common 08:07:00 08:07:[address] [facility] 2019-02-23 2019-02-23 [facility] [id number] Common 15:53:00 15:53:[address] [facility] 2019-02-23 2019-02-23 [facility] [id number] Common 10:45:00 10:45:[address] [facility] 2019-02-13 2019-02-13 [facility] [id number] Common 09:15:00 09:15:[address] [facility] 2018-11-22 2018-11-22 [facility] [id number] Common 09:38:00 09:38:[address] [facility] 2018-05-18 2018-05-18 [facility] [id number] Common 14:00:00 14:00:[address] [facility] 2018-05-05 2018-05-05 [facility] [id number] Common 08:30:00 08:30:[address] [facility] 2018-01-31 2018-01-31 [facility] [id number] Common 08:00:00 08:00:[address] [facility] 2017-10-06 2017-10-06 [facility] [id number] Common 10:00:00 10:00:[address] [facility] Results This patient has no known results.
[2023-02-14] MEDS ORDERED: CEFTRIAXONE 1000 MG/VIAL ONE (09:18)
[2023-02-14] MEDS ORDERED: AZITHROMYCIN 500 MG INJ IVPB ONE (09:18)
[2023-02-14] MEDS ORDERED: NA CHLORIDE 0.9% 250 ML ONE (09:18)
[2023-02-14] MEDS ORDERED: NA CHLORIDE 0.9% 50 ML ONE (09:19)
[2023-02-14] MEDS ORDERED: NA CHLORIDE 0.9% 1,000 ML ONE (09:19)
[2023-02-14 09:24] LABS: Arterial Blood Carboxyhemoglob 1.4 % (0-1.5); Blood Gas Oxyhemoglobin 78.7 % (94-97); Blood O2 Saturation 81.1 % (92-98.5)
[2023-02-14 09:27] LABS: Absolute Lymphocytes (CBC) 0.7 K/uL (0.7-4.9); Hematocrit 50.6 % (39.6-49.0); Lymphocytes % 2.1 % (15.3-44.8); MCV 94.3 fL (80-100); MPV 8.5 fL (7.6-11.3); Platelets 290 thou/uL (152-406); RBC Red Blood Cell Count 5.37 M/uL (4.33-5.43)
[2023-02-14 09:33] LABS: Protime INR 1.54
[2023-02-14 09:47] LABS: Albumin 3.4 g/dL (3.4-5.0); Potassium 4.9 mEq/L (3.5-5.1); Protein, Total 8.3 g/dL (6.4-8.2)
--- NOTE | 2023-02-14 09:48 | RAD REPORT ---
EXAM DESCRIPTION: RAD - Chest Single View - 02/14/2023 9:41 am CLINICAL HISTORY: PRODUCTIVE COUGH Chest pain. COMPARISON: Chest Single View dated 06/14/2020 FINDINGS: Portable technique limits examination quality. The lungs are mildly underinflated resulting in atelectasis in both lung bases. The heart is mildly p rominent in size. No displaced fractures. IMPRESSION: Underinflated lungs with mild atelectasis or infiltrate in both lung bases.
[2023-02-14 10:02] LABS: Blood Morphology Comment NOT SEEN (NOT SEEN); Platelet Estimate ADEQ; Platelets, Giant NOTED
[2023-02-14] MEDS ORDERED: NA CHLORIDE 0.9% 2,000 ML ONE (10:19)
--- NOTE | 2023-02-14 10:44 | ER ---
Nurse's Notes [facility] Name: Blair Garcia Age: 78 yrs Sex: Male : 1945 Arrival Date: 02/14/2023 Time: 08:54 Bed 2 Private MD: Diagnosis: Sepsis, unspecified organism;Pneumonia, unspecified organism;Hyperglycemia, unspecified Presentation: 02/14 09:02 Chief complaint: EMS states: Pt is from [facility], staff went to check his rs5 morning vitals and pt's pulse was in the 130's and pt was SOB. EMS reports RA sat 87% and 92% on 5L NS. Pt is not oxygen dependent. Coronavirus screen: At this time, the client does not indicate any symptoms associated with coronavirus-19. Ebola Screen: No symptoms or risks identified at this time. Initial Sepsis Screen: Does the patient meet any 2 criteria? RR > 20 per min. HR > 90 bpm. Does the patient have a suspected source of infection? Yes: Productive cough/pneumonia. Risk Assessment: Do you want to hurt yourself or someone else? Patient reports no desire to harm self or others. Onset of symptoms was February 14, 2023. 09:02 Method Of Arrival: EMS: [facility] rs5 09:02 Acuity: SOFIA 2 rs5 Historical: - Allergies: 09:06 No Known Allergies; rs5 - Home Meds: 10:21 nystatin 100,000 unit/gram Topical cream 2 times per day for to groin [Active]; Aricept aa5 10 mg Oral tablet every day at bedtime [Active]; Flonase Nasal 50 mcg to each nostril daily [Active]; potassium chloride 20 mEq Oral Tablet, ER Particles/Crystals once [Active]; losartan 50 mg oral tablet once [Active]; amlodipine 2.5 mg tablet once [Active]; Lasix 40 mg Oral tablet once [Active]; carbidopa-levodopa 25-100 mg oral tablet every 8hrs [Active]; lactobacillus capsule daily [Active]; ezetimibe 10 mg oral tablet nightly [Active]; cyanocobalamin (vitamin B-12) 5,000 mcg oral capsule once [Active]; clopidogrel 75 mg oral tablet once [Active]; Namenda 10 mg oral tablet 2 times per day [Active]; magnesium oxide 400 mg magnesium Oral capsule once [Active]; - PMHx: 09:06 Cerebrovascular accident; Dementia; Hyperlipidemia; Hypertensive disorder; Parkinsons; aa5 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 - Social history:: Smoking status: unknown. Screenin:00 [facility] ED Fall Risk Assessment (Adult) [facility] ED Fall Risk Assessment (Adult) rs5 History of falling in the last 3 months, including since admission No falls in past 3 months (0 pts) Confusion or Disorientation No (0 pts) Intoxicated or Sedated No (0 pts) Impaired Gait Yes (1 pt) Mobility Assist Device Used No (0 pt) Altered Elimination No (0 pt) Score/Fall Risk Level 0 - 2 = Low Risk Oriented to surroundings, Maintained a safe environment. 09:00 Abuse screen: Denies threats or abuse. rs5 09:00 Nutritional screening: No deficits noted. Tuberculosis screening: No symptoms or risk rs5 factors identified. Assessment: 09:00 General: Appears distressed, uncomfortable, Behavior is cooperative. rs5 09:00 Pain: Denies pain. Neuro: Level of Consciousness is awake, alert, obeys commands, rs5 Oriented to unable to assess, EMS states pt suffered a major CVA several years ago, is bedbound, has dysphagia, and unable to speak. Cardiovascular: Denies chest pain, Heart tones S1 S2 Rhythm is regular. Respiratory: Airway is patent Respiratory effort is even, labored, Respiratory pattern is tachypnea Breath sounds with wheezes bilaterally. GI: Abdomen is round non-distended, Bowel sounds present X 4 quads. Abd is soft and non tender X 4 quads. : No signs and/or symptoms were reported regarding the genitourinary system. EENT: No signs and/or symptoms were reported regarding the EENT system. Derm: Skin is intact, Skin is pink, warm \T\ dry. Musculoskeletal: Circulation, motion, and sensation intact. Range of motion: limited in all extremities, Pt suffered several years ago, is bed bound 3/5 hand, arm strength bilat. 3/5 foot, leg strength bilat. 10:02 Reassessment: Patient and/or family updated on plan of care and expected duration. Pain rs5 level reassessed. 10:02 General: Appears in no apparent distress. comfortable, Behavior is calm, cooperative. rs5 Cardiovascular: Denies chest pain, Rhythm is sinus tachycardia. Respiratory: Airway is patent Respiratory effort is even, labored, Respiratory pattern is tachypnea. 11:24 Reassessment: Patient and/or family updated on plan of care and expected duration. Pain rs5 level reassessed. Patient is alert, oriented x 3, equal unlabored respirations, skin warm/dry/pink. to bedside for blood draw. Cardiovascular: Denies chest pain, Rhythm is regular. Respiratory: Airway is patent Respiratory effort is even, labored, Respiratory pattern is tachypnea. 11:57 Reassessment: To bedside for blood draw. rs5 11:57 Reassessment: No changes from previously documented assessment. rs5 13:46 Reassessment: CALLED ICU TO GIVE REPORT. NURSE IS WITH A PT OFF FLOOR AND STATES WILL db CALL BACK. 13:46 General: Appears in no apparent distress. comfortable, Behavior is calm, cooperative. rs5 Pain: Denies pain. Cardiovascular: Rhythm is sinus tachycardia. Respiratory: Airway Respiratory effort is even, unlabored, Respiratory pattern is tachypnea. 14:13 Reassessment: REPORT GIVEN TO JAZIEL TURNER. db 15:00 Reassessment: Patient and/or family updated on plan of care and expected duration. Pain rs5 level reassessed. Vital Signs: 09:02 BP 100 / 77; Pulse 137; Resp 42; Temp 99(A); Pulse Ox 92% on 4 lpm NC; aa5 09:15 Pulse Ox 85% on 4 lpm NC; aa5 09:17 Pulse Ox 92% on 6 lpm NC; aa5 09:30 BP 112 / 82; Pulse 119; Resp 33 S; Pulse Ox 95% on 6 lpm NC; aa5 10:00 BP 117 / 79; Pulse 112; Resp 27; Pulse Ox 95% on 6 lpm NC; db 10:30 BP 126 / 81; Pulse 97; Resp 30; Pulse Ox 94% on 6 lpm NC; db 11:00 BP 134 / 81; Pulse 95; Resp 25; Pulse Ox 94% on NC; db 11:30 BP 123 / 81; Pulse 106; Resp 30; Pulse Ox 93% on NC; db 12:00 BP 120 / 81; Pulse 93; Resp 28; Pulse Ox 93% on NC; db 12:30 BP 121 / 75; Pulse 96; Resp 27 S; Pulse Ox 93% ; db 13:00 BP 125 / 81; Pulse 104; Resp 29; Pulse Ox 92% on 6 lpm NC; db 13:30 BP 124 / 79; Pulse 96; Resp 30; Pulse Ox 92% on 6 lpm NC; db 14:00 BP 121 / 82; Pulse 107; Resp 25; Pulse Ox 93% on 6 lpm NC; me1 14:20 BP 120 / 78; Pulse 90; Resp 28; Pulse Ox 92% on 6 lpm NC; me1 ED Course: 08:56 Patient arrived in ED. aa5 08:57 Dave Martinez MD is Attending Physician. ec2 09:00 Patient has correct armband on for positive identification. Placed in gown. Bed in low rs5 position. Call light in reach. Side rails up X2. 09:00 Arm band placed on right wrist. rs5 09:02 Aly Cooper, JAZIEL is Primary Nurse. rs5 09:06 Triage completed. rs5 09:14 Inserted saline lock: 22 gauge in right wrist, using aseptic technique. Blood collected.db 09:14 Initial lab(s) drawn, sent to lab. First set of blood cultures drawn by me. db 09:20 Missed attempt(s): 20 gauge in right forearm. Bleeding controlled, band aid applied, aa5 catheter tip intact. 09:25 Second set of blood cultures drawn by me. aa5 09:43 Chest Single View XRAY In Process Unspecified. EDMS 10:35 Inserted saline lock: 22 gauge in left wrist, using aseptic technique. aa5 10:35 Repeat glucose drawn and sent to lab. aa5 10:43 Allen Wright MD is Hospitalizing Provider. ec2 12:31 connected Anne Mcgrath the practitioner taking care of the patient at [facility] with Dr. Martinez. 15:00 No provider procedures requiring assistance completed. rs5 15:00 Patient admitted, IV remains in place. rs5 Administered Medications: 09:25 Drug: NS 0.9% IV 1000 ml IV at 1 bolus Per protocol; 1000 mL bolus Route: IV; Rate: 1 db bolus; Site: right antecubital; 09:40 Follow up: Response: No adverse reaction rs5 09:30 Drug: Rocephin IV 1 grams IV at calculated rate once; Given slow IV push per pharmacy db instructions Route: IV; Rate: calculated rate; Site: right wrist; 09:45 Follow up: Response: No adverse reaction rs5 10:15 Drug: NS 0.9% IV 2000 ml IV at 1 bolus Per protocol; 1000 mL bolus Route: IV; Rate: 1 rs5 bolus; Site: right forearm; 10:30 Drug: AZITHromycin IVPB 500 mg IVPB once over 1 hrs; (mix in 250 mL NS) Route: IVPB; rs5 Infused Over: 1 hrs; Site: right forearm; 10:45 Follow up: Response: No adverse reaction rs5 10:45 Drug: Insulin Drip - (Insulin Regular Human IVP 100 units, NS 0.9% IV 100 ml) IV at rs5 calculated rate continuous; Standard concentration 1unit/ml; Dose for DKA is 0.1 units/kg/hr {Co-Signature: [email or web address] (Madison Valdez RN).} Route: IV; Rate: calculated rate; Site: left wrist; 11:00 Follow up: Response: No adverse reaction rs5 Medication: 10:45 VIS not applicable for this client. rs5 Point of Care Testing: Blood Glucose: 13:21 Blood Glucose: 462 mg/dL; me1 Ranges: Outcome: 10:44 Decision to Hospitalize by Provider. ec2 15:00 Admitted to ICU accompanied by tech, via stretcher, room 6, with oxygen, on monitor, rs5 with chart, 15:00 Condition: stable 15:00 Instructed on the need for admit, Demonstrated understanding of instructions, 15:09 Patient left the ED. rs5 Signatures: Dispatcher [employer] Madison Malik, RN RN aa5 Ashwini Novak Danielle, RN RN db Aly Cooper RN RN rs5 Eduarda Galicia RN RN me1 Dave Martinez MD MD 2 Madison Valdez RN5 Corrections: (The following items were deleted from the chart) 09:46 09:02 BP 100 / 77; Pulse 120bpm; Resp 22bpm; Pulse Ox 92% 6 lpm Nasal Cannula; Temp 99F aa5 Axillary; rs5 09:46 09:02 BP 100 / 77; Pulse 120bpm; Resp 42bpm; Pulse Ox 92% 6 lpm Nasal Cannula; Temp 99F aa5 Axillary; aa5 16:06 14:17 [facility] ED Fall Risk Assessment (Adult) db rs5
--- NOTE | 2023-02-14 10:44 | EDPHYS ---
Physician Documentation [facility] Name: Blair Garcia Age: 78 yrs Sex: Male : 1945 Arrival Date: 02/14/2023 Time: 08:54 Bed 2 Private MD: ED Physician Dave Martinez HPI: 02/14 09:03 This 78 yrs old Male presents to ER via EMS with complaints of Elevated Heart ec2 rate. 09:03 Patient arrives today via EMS, history gathered by EMS as well as family member due to ec2 patient's poor baseline functional status. Patient reportedly is having worsening shortness of breath as well as tachycardia. EMS was called by nursing facility due to concern for tachycardia as well as increased fatigue. states that he had multiple vomiting events over the past couple of days. Patient is baseline more interactive and alert however has deteriorated the past couple days. Additionally EMS reports that he was noted to be hypoxic and requiring oxygen which is new for him. EMS also reported that his blood sugar read as high.. Historical: - Allergies: 09:06 No Known Allergies; rs5 - Home Meds: 10:21 nystatin 100,000 unit/gram Topical cream 2 times per day for to groin [Active]; Aricept aa5 10 mg Oral tablet every day at bedtime [Active]; Flonase Nasal 50 mcg to each nostril daily [Active]; potassium chloride 20 mEq Oral Tablet, ER Particles/Crystals once [Active]; losartan 50 mg oral tablet once [Active]; amlodipine 2.5 mg tablet once [Active]; Lasix 40 mg Oral tablet once [Active]; carbidopa-levodopa 25-100 mg oral tablet every 8hrs [Active]; lactobacillus capsule daily [Active]; ezetimibe 10 mg oral tablet nightly [Active]; cyanocobalamin (vitamin B-12) 5,000 mcg oral capsule once [Active]; clopidogrel 75 mg oral tablet once [Active]; Namenda 10 mg oral tablet 2 times per day [Active]; magnesium oxide 400 mg magnesium Oral capsule once [Active]; - PMHx: 09:06 Cerebrovascular accident; Dementia; Hyperlipidemia; Hypertensive disorder; Parkinsons; aa5 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 - Social history:: Smoking status: unknown. ROS: 09:03 Constitutional: Shortness of breath, fatigue. ec2 Exam: 09:03 Constitutional: PHYSICAL EXAMINATION: GENERAL: Generally ill-appearing ec2 individual HEENT: Extraocular motions intact CV: Tachycardia noted LUNGS: Tachypnea noted SKIN: No rash evident Vital Signs: 09:02 BP 100 / 77; Pulse 137; Resp 42; Temp 99(A); Pulse Ox 92% on 4 lpm NC; aa5 09:15 Pulse Ox 85% on 4 lpm NC; aa5 09:17 Pulse Ox 92% on 6 lpm NC; aa5 09:30 BP 112 / 82; Pulse 119; Resp 33 S; Pulse Ox 95% on 6 lpm NC; aa5 10:00 BP 117 / 79; Pulse 112; Resp 27; Pulse Ox 95% on 6 lpm NC; db 10:30 BP 126 / 81; Pulse 97; Resp 30; Pulse Ox 94% on 6 lpm NC; db 11:00 BP 134 / 81; Pulse 95; Resp 25; Pulse Ox 94% on NC; db 11:30 BP 123 / 81; Pulse 106; Resp 30; Pulse Ox 93% on NC; db 12:00 BP 120 / 81; Pulse 93; Resp 28; Pulse Ox 93% on NC; db 12:30 BP 121 / 75; Pulse 96; Resp 27 S; Pulse Ox 93% ; db 13:00 BP 125 / 81; Pulse 104; Resp 29; Pulse Ox 92% on 6 lpm NC; db 13:30 BP 124 / 79; Pulse 96; Resp 30; Pulse Ox 92% on 6 lpm NC; db 14:00 BP 121 / 82; Pulse 107; Resp 25; Pulse Ox 93% on 6 lpm NC; me1 14:20 BP 120 / 78; Pulse 90; Resp 28; Pulse Ox 92% on 6 lpm NC; me1 MDM: 08:57 Patient medically screened. ec2 09:03 ED course: Patient arrives today due to concern for increased fatigue as well as ec2 elevated heart rate. Clinical examination concerning for sepsis given the patient's tachycardia, tachypnea with evident hypoxia requiring new oxygen requirement. We will do a septic work-up, treat for underlying pulmonary pathology with ceftriaxone and azithromycin we will give the patient crystalloid as well. Additionally given the reported high reading of sugar, concerning for possible DKA. Currently considering pneumonia, aspiration event, urinary tract infection, renal dysfunction, electrolyte disturbance.. 09:58 ED course: Patient is labwork markable for marked leukocytosis at 31. Metabolic profile ec2 with marked abnormalities with anion gap at 20, hyperglycemia at 700, creatinine is 2.52. Lactic acid elevated at 4.6. Obtain a venous blood gas given the patient's electrolyte disturbances, no significant acidosis with a pH of 7.37. We will start the patient on insulin drip given the patient's hyperglycemia as well as anion gap elevation. . 10:02 ED course: Additionally patient with no marked acidosis, possible HHS given the marked ec2 hyperglycemia and the alteration in his mental status. We will continue to proceed with insulin drip.. 10:04 Data reviewed: vital signs. ec2 10:41 ED course: On reassessment patient with improving vital signs as well as improving ec2 mental status. Patient does have improved tachycardia from initial 130s to 110s. Discussed case with hospitalist, pending admission.. 02/14 09:03 Order name: Blood Culture Adult (2) ec2 02/14 09:03 Order name: CBC with Diff; Complete Time: 10:03 ec2 02/14 09:03 Order name: CMP; Complete Time: 09:55 ec2 02/14 09:03 Order name: Lactate w/ 2H reflex if indic.; Complete Time: 09:55 ec2 02/14 09:03 Order name: Protime (+inr); Complete Time: 09:55 ec2 02/14 09:03 Order name: Ptt, Activated; Complete Time: 09:55 ec2 02/14 09:03 Order name: Urinalysis w/ reflexes ec2 02/14 09:07 Order name: ABG: VBG please per MD; Complete Time: 09:55 hb 02/14 09:32 Order name: Manual Differential; Complete Time: 10:03 EDMS 02/14 10:02 Order name: Glucose, Ancillary Testing; Complete Time: 10:03 EDMS 02/14 10:36 Order name: Glucose rs5 02/14 10:41 Order name: Glucose db 02/14 11:43 Order name: Basic Metabolic Panel EDMS 02/14 11:43 Order name: Basic Metabolic Panel EDMS 02/14 11:43 Order name: Basic Metabolic Panel EDMS 02/14 11:43 Order name: Basic Metabolic Panel EDMS 02/14 11:43 Order name: CBC with Automated Diff EDMS 02/14 11:43 Order name: CBC with Automated Diff EDMS 02/14 11:43 Order name: CBC with Automated Diff EDMS 02/14 11:43 Order name: CBC with Automated Diff EDMS 02/14 11:43 Order name: Magnesium EDMS 02/14 11:43 Order name: Magnesium EDMS 02/14 11:43 Order name: Magnesium EDMS 02/14 11:43 Order name: Magnesium EDMS 02/14 11:43 Order name: Phosphorus EDMS 02/14 11:43 Order name: Phosphorus EDMS 02/14 11:43 Order name: Phosphorus EDMS 02/14 11:43 Order name: Phosphorus EDMS 02/14 11:52 Order name: Glucose rs5 02/14 13:09 Order name: Lactate w/ 2H reflex if indic. EDMS 02/14 13:31 Order name: Glucose, Ancillary Testing EDMS 02/14 14:51 Order name: Glucose, Ancillary Testing EDMS 02/14 09:03 Order name: Chest Single View XRAY; Complete Time: 09:55 ec2 02/14 09:03 Order name: EKG; Complete Time: 09:04 ec2 02/14 11:43 Order name: EKG Electrocardiogram EDMS 02/14 09:03 Order name: Accucheck; Complete Time: 10:05 ec2 02/14 09:03 Order name: Cardiac monitoring; Complete Time: 09:07 ec2 02/14 09:03 Order name: EKG - Nurse/Tech; Complete Time: 09:07 ec2 02/14 09:03 Order name: IV Saline Lock - Large Bore; Complete Time: 09:27 ec2 02/14 09:03 Order name: Labs collected and sent; Complete Time: 09:27 ec2 02/14 09:03 Order name: O2 Per Protocol; Complete Time: 09:07 ec2 02/14 09:03 Order name: O2 Sat Monitoring; Complete Time: 09:07 ec2 02/14 09:03 Order name: Vital Signs; Complete Time: 09:08 ec2 Administered Medications: 09:25 Drug: NS 0.9% IV 1000 ml IV at 1 bolus Per protocol; 1000 mL bolus Route: IV; Rate: 1 db bolus; Site: right antecubital; 09:40 Follow up: Response: No adverse reaction rs5 09:30 Drug: Rocephin IV 1 grams IV at calculated rate once; Given slow IV push per pharmacy db instructions Route: IV; Rate: calculated rate; Site: right wrist; 09:45 Follow up: Response: No adverse reaction rs5 10:15 Drug: NS 0.9% IV 2000 ml IV at 1 bolus Per protocol; 1000 mL bolus Route: IV; Rate: 1 rs5 bolus; Site: right forearm; 10:30 Drug: AZITHromycin IVPB 500 mg IVPB once over 1 hrs; (mix in 250 mL NS) Route: IVPB; rs5 Infused Over: 1 hrs; Site: right forearm; 10:45 Follow up: Response: No adverse reaction rs5 10:45 Drug: Insulin Drip - (Insulin Regular Human IVP 100 units, NS 0.9% IV 100 ml) IV at rs5 calculated rate continuous; Standard concentration 1unit/ml; Dose for DKA is 0.1 units/kg/hr {Co-Signature: robi (Madison Valdez RN).} Route: IV; Rate: calculated rate; Site: left wrist; 11:00 Follow up: Response: No adverse reaction rs5 Point of Care Testing: Blood Glucose: 13:21 Blood Glucose: 462 mg/dL; me1 Ranges: Critical Glucose Levels:Adult <50 mg/dl or >400 mg/dl <40 mg/dl or >180 mg/dl Disposition: 10:04 Critical Care:. ec2 Disposition Summary: 02/14/23 10:44 Hospitalization Ordered Notes: Hospitalization Status: Inpatient Admission ec2 Provider: Allen Wright ec2 Location: Intensive Care Unit ec2 Condition: Serious ec2 Problem: new ec2 Symptoms: have improved ec2 Bed/Room Type: Standard ec2 Room Assignment: 6-(02/14/23 13:22) eb Diagnosis - Sepsis, unspecified organism ec2 - Pneumonia, unspecified organism ec2 - Hyperglycemia, unspecified ec2 Forms: - Medication Reconciliation Form ec2 - SBAR form ec2 - Leadership Thank You Letter ec2 Critical care time excluding procedures: 10:04 Critical care time: Bedside Care: 30 minutes, Consultation: 5 minutes. Total time: 35 ec2 minutes Signatures: Dispatcher [employer] EDMadison Anne, RN RN [email or web address] Ashwini Novak Danielle, RN RN db Aly Cooper RN RN rs5 Dave Martinez MD MD ec2 Madison Vladez RN aa5 Corrections: (The following items were deleted from the chart) 09: 09:03 Patient arrives today via EMS, history gathered by EMS as well as family member ec2 due to patient's poor baseline functional status. Patient reportedly is having worsening shortness of breath as well as tachycardia. EMS was called by nursing facility due to concern for tachycardia as well as increased fatigue. states that he had multiple vomiting events over the past couple of days. Patient is baseline more interactive and alert however has deteriorated the past couple days.. ec2 09:07 09:03 ED course: Patient arrives today due to concern for increased fatigue as well as ec2 elevated heart rate. Clinical examination concerning for sepsis given the patient's tachycardia, tachypnea with evident hypoxia requiring new oxygen requirement. We will do a septic work-up, treat for underlying pulmonary pathology with ceftriaxone and azithromycin we will give the patient crystalloid as well. Currently considering pneumonia, aspiration event, urinary tract infection, renal dysfunction, electrolyte disturbance.. ec2 13:22 10:44 ec2
[2023-02-14] MEDS ORDERED: INSULIN -REGULAR HUMAN 100 UNIT in NA CHLORIDE 0.9% 100 ML IV SCH (11:00)
[2023-02-14] MEDS ORDERED: NA CHLORIDE 0.9% 500 ML IV ONE (11:45)
[2023-02-14] MEDS ORDERED: ACETAMINOPHEN 325 MG TABLET PO PRN (11:50)
[2023-02-14] MEDS ORDERED: SODIUM CHLORIDE 0.9% 10ML INJ IV PRN (11:50)
[2023-02-14] MEDS ORDERED: ONDANSETRON 4 MG/2 ML VIAL IV PRN (11:50)
--- NOTE | 2023-02-14 11:56 | P.HP ---
Certification for Inpatient Patient admitted to: Inpatient With expected LOS: <2 Midnights Patient will require the following post-hospital care: None Practitioner: I am a practitioner with admitting privileges, knowledge of patient current condition, hospital course, and medical plan of care. Services: Services provided to patient in accordance with Admission requirements found in Title 42 Section 412.3 of the Code of Federal Regulations Patient History Date of Service: 02/14/23 Primary Care Provider: Dr. Wright Reason for admission: Sepsis, pneumonia, hyperglycemia History of Present Illness: Mr. 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 Patient's spouse is the historian. She reports that the shortness of breath started this morning as well as elevated heart rate. states that patient also had increased fatigue, multiple episodes of vomiting over the last few days. Patient reportedly deteriorated over the past 2 days in regards to responsiveness to the spouse. Spouse denies fever or chills, abdominal pain, chest pain, chest discomfort. ED course; blood pressure 100/77, pulse of 137, respiration 42, temperature 99, pulse ox 92% on nasal cannula 4 L. Septic work-up done, patient was given ceftriaxone and azithromycin and fluid bolus normal saline. Patient was given insulin due to high blood sugar level. Patient's lab work is significant for leukocytosis at 31, blood sugar level at 700, creatinine is 2.52. Lactic acid elevated at 4.6. Blood gas obtained, pH of 7.37. Chest x-ray showing underinflated lungs with mild atelectasis or infiltrate in both the lungs. Patient is admitted with a diagnosis of sepsis unspecified organism, pneumonia unspecified organism, hyperglycemia. Allergies No Known Allergies Allergy (Unverified 06/14/20 14:51) Home Medications: Ascorbic Acid [Vitamin C] 1 tab PO DAILY 06/15/20 Carbidopa/Levodopa [Sinemet 25-100 mg Tablet] 1 each PO TID 06/15/20 Cyanocobalamin (Vitamin B-12) [Vitamin B12] 5,000 mcg PO DAILY 06/15/20 Duloxetine HCl 20 mg PO DAILY 06/15/20 L. Acidophilus/L. Rhamnosus [Probiotic 15 Billion Cell Cap] 1 each PO DAILY 06/15/20 Magnesium Oxide [Magnesium] 400 mg PO DAILY 06/15/20 Melatonin 3 mg PO BEDTIME 06/15/20 Memantine HCl [Namenda] 10 mg PO BID 06/15/20 Amlodipine Besylate [Norvasc] 5 mg PO DAILY 30 Days #30 tablet 06/20/20 Clopidogrel Bisulfate [Plavix*] 75 mg PO DAILY 30 Days #30 tablet 06/20/20 Ezetimibe [Zetia*] 10 mg PO BEDTIME 30 Days #30 tab 06/20/20 - Past Medical/Surgical History Diabetic: No -: Parkinson's disease -: Dementia -: Rotator cuff sx -: prostate surgery - Family History Mother -: Stroke - Social History Alcohol use: No CD- Drugs: No Caffeine use: No Review of Systems 10-point ROS is otherwise unremarkable General: Weakness, Malaise Eyes: Unremarkable ENT: Unremarkable Respiratory: Shortness of Breath, SOB with Excertion Cardiovascular: Other (Denies chest pain, palpitation, edema) Gastrointestinal: Nausea, Vomiting (Denies abdominal pain diarrhea) Genitourinary: Incontinence Musculoskeletal: Atrophy Integumentary: Rash (Diaper dermatitis), Bruising (On the groin) Neurological: Weakness, Other (Bed confined after the stroke 2020) Physical Examination - Physical Exam General: Oriented x1, Other (Worsening dementia) HEENT: Atraumatic, Normocephalic, PERRLA Neck: 2+ carotid pulse no bruit, JVD not distended Respiratory: Clear to auscultation bilaterally, Diminished, Crackles/rales Cardiovascular: No edema, Normal pulses, Regular rate/rhythm, Normal S1 S2 Capillary refill: <2 Seconds Gastrointestinal: Normal bowel sounds, Non-distended, No ascites, No tenderness, No masses Musculoskeletal: No clubbing, No swelling, No erythema, No tenderness, No warmth Integumentary: Other (Diaper dermatitis) Neurological: Other (A face), Dementia - Studies Laboratory Data (last 24 hrs) 02/14/23 02/14/23 02/14/23 11:19 10:35 09:14 WBC Hgb Hct Plt Count PT 16.9 H INR 1.54 APTT 30.5 Sodium Potassium BUN Creatinine Glucose 621 H* 659 H* Total Bilirubin AST ALT Alkaline Phosphatase 02/14/23 02/14/23 09:14 09:14 WBC 31.30 H Hgb 16.8 Hct 50.6 H Plt Count 290 PT INR APTT Sodium 139 Potassium 4.9 BUN 33 H Creatinine 2.52 H Glucose 702 H* Total Bilirubin 2.0 H AST 17 ALT 11 L Alkaline Phosphatase 104 Assessment and Plan - Plan Assessment and plan Assessment Sepsis unspecified organism Tachycardia Tachypnea Pneumonia, unspecified organism Hyperglycemia Hypoxia requiring oxygen oxygen requirement Renal impairment Hyperglycemia Plan Sepsis unspecified organism Tachycardia Tachypnea Pneumonia, unspecified organism Hyperglycemia Hypoxia requiring oxygen oxygen requirement Renal impairment * Patient came to the hospital with increased shortness of breath and tachycardia * Patient's lab work is significant for leukocytosis at 31, blood sugar level at 700, creatinine is 2.52. Lactic acid elevated at 4.6 * Admitting the patient for sepsis * Broad-spectrum antibiotics started * IV hydration started * Cultures blood and urine * Discussed with patient's spouse about advance care planning. She reports she wanted to keep the patient as DO NOT RESUSCITATE * Will admit the patient in ICU for close monitoring * Discussed the plan with Dr. Rooney Hyperglycemia: * Initial blood sugar is above 700, continue continue insulin * Will continue the insulin drip until the blood sugar is within acceptable l range * Patient is not diabetic Dementia, Parkinson's disease CVA with left hemiplegia Hyperlipidemia * Resume home medication * Will continue to monitor CODE STATUS Full code DVT prophylaxis. Heparin Diet Cardiac diabetic aspiration precaution - Advance Directives Does patient have a Living Will: Yes Does patient have a Durable POA for Healthcare: Yes - Code Status/Comfort Care Code Status Assessed: Yes (DO NOT RESUSCITATE) Code Status: Do Not Attempt Resuscitat Physician Review: Patient Assessed, Agree with Above Assessment and Plan Critical Care: Yes Time Spent Managing Pts Care (In Minutes): 60 (minutes)
[2023-02-14] MEDS ORDERED: NA CHLORIDE 0.9% 1,000 ML IV SCH (12:00)
[2023-02-14 12:30] LABS: Magnesium 2.4 mg/dL (1.6-2.4); Phosphorus 2.1 mg/dL (2.5-4.9)
[2023-02-14 12:47] LABS: Absolute Lymphocytes (CBC) 0.8 K/uL (0.7-4.9); Hematocrit 43.3 % (39.6-49.0); Lymphocytes % 3.2 % (15.3-44.8); MCV 93.3 fL (80-100); MPV 8.5 fL (7.6-11.3); Platelets 238 thou/uL (152-406); RBC Red Blood Cell Count 4.63 M/uL (4.33-5.43)
[2023-02-14] MEDS ORDERED: VANCOMYCIN 1 GM in NA CHLORIDE 0.9% 250 ML IVPB SCH (15:53)
[2023-02-14 16:54] LABS: Magnesium 2.6 mg/dL (1.6-2.4); Potassium 3.5 mEq/L (3.5-5.1)
[2023-02-14 16:56] LABS: Phosphorus 1.2 mg/dL (2.5-4.9)
[2023-02-14] MEDS ORDERED: VANCOMYCIN 1.25 GM in NA CHLORIDE 0.9% 250 ML IVPB ONE (17:00)
[2023-02-14] MEDS ORDERED: VANCOMYCIN 1.5 GM in NA CHLORIDE 0.9% 500 ML IVPB SCH ×2 (17:00→18:00)
[2023-02-14] MEDS: Meropenem 500 MG in NA CHLORIDE 0.9% 100 ML IV SCH (17:35)
[2023-02-14] MEDS ORDERED: VANCOMYCIN 1 GM, VANCOMYCIN 500 MG in NA CHLORIDE 0.9% 500 ML IVPB SCH (18:00)
[2023-02-14 21:22] LABS: Magnesium 2.6 mg/dL (1.6-2.4); Potassium 2.8 mEq/L (3.5-5.1)
[2023-02-14 21:23] LABS: Phosphorus 0.6 mg/dL (2.5-4.9)
[2023-02-14] MEDS ORDERED: GLUCAGON 1 MG/VIAL IM PRN (21:26)
[2023-02-14] MEDS ORDERED: D50W 25 GM/50 ML SYRINGE IV PRN (21:26)
[2023-02-14] MEDS ORDERED: D10W 125 ML IV PRN (21:30)
[2023-02-14] MEDS ORDERED: POTASSIUM PHOS 30 MM in NA CHLORIDE 0.9% 500 ML IV ONE (21:36)
[2023-02-14] MEDS ORDERED: D5W 1,000 ML IV ONE (21:57)
[2023-02-14] MEDS: D5W 1,000 ML with POTASSIUM CL 20 MEQ IV SCH ×2 (22:00)
[2023-02-14] MEDS ORDERED: POTASSIUM PHOS IN 0.9 % NACL 15 MMOL/250 ML BAG IV ONE (22:01)
[2023-02-14] MEDS ORDERED: KCL 20 MEQ/100 mL IVPB 100 ML IV ONE (22:02)
[2023-02-14] MEDS: POTASSIUM PHOS IN 0.9 % NACL 15 MMOL/250 ML BAG IV SCH (22:24)
[2023-02-14] MEDS: KCL 20 MEQ/100 mL IVPB 20 MEQ/100 ML BAG IV SCH (22:24)
[2023-02-15] MEDS: KCL 20 MEQ/100 mL IVPB 20 MEQ/100 ML BAG IV SCH ×2 (00:02→02:16)
[2023-02-15] MEDS: INSULIN REGULAR (HUMAN) 100 UNIT/ML SQ SCH ×4 (00:11→17:39)
[2023-02-15] MEDS: Meropenem 500 MG in NA CHLORIDE 0.9% 100 ML IV SCH ×2 (01:27→09:10)
[2023-02-15 04:54] LABS: Absolute Lymphocytes (CBC) 1.1 K/uL (0.7-4.9); Hematocrit 42.9 % (39.6-49.0); Lymphocytes % 4.1 % (15.3-44.8); MCV 92.1 fL (80-100); MPV 8.4 fL (7.6-11.3); Platelets 241 thou/uL (152-406); RBC Red Blood Cell Count 4.66 M/uL (4.33-5.43)
--- NOTE | 2023-02-15 05:11 | P.PN ---
Date of Service: 02/15/23 Subjective: Patient clinical symptoms are stable. Doing better. Patient's at bedside. He is still very lethargic and not really interacting like he normally does according to the . Physical Exam: Vitals: reviewed GEN: Opens eyes and looks around and he seemsto be aware of what is going on, dementia HEENT: Normal conjunctiva, sclera anicteric CV: Regular rate & rhythm, no edema Pulm: Diminished, Crackles/rales ABD: Soft, nontender, nondistended MSK: No joint tenderness Integumentary: redness in the sacral region Neuro: paraplegic Problem List: Assessment: 1. Sepsis, secondary to aspiration pneumonia 2. Acute hypoxic respiratory failure 3. Hyperglycemia 4. Dementia, Parkinson's disease 5. CVA with left hemiplegia 6. Hyperlipidemia PLAN Plan: 1. Continue with IV antibiotics 2. Awaiting culture 3. Repeat chest x-ray 4. Swallow eval 5. Appreciate pulmonary consultation 6. Supportive care as needed 7. O2 per protocol 8. Continue with gentle hydration 9. Repeat labs 10. GI and DVT prophylaxis
[2023-02-15 05:14] LABS: Magnesium 2.4 mg/dL (1.6-2.4); Potassium 4.4 mEq/L (3.5-5.1)
[2023-02-15 05:15] LABS: Phosphorus 1.3 mg/dL (2.5-4.9)
[2023-02-15] MEDS ORDERED: PANTOPRAZOLE 40 MG INJ IVP SCH (09:00)
[2023-02-15] MEDS: POTASSIUM PHOS IN 0.9 % NACL 15 MMOL/250 ML BAG IV SCH (09:46)
[2023-02-15] MEDS ORDERED: D5W 1,000 ML IV ONE (09:54)
[2023-02-15] MEDS: INSULIN GLARGINE 100 UNIT/ML SQ SCH ×2 (12:21→20:27)
--- NOTE | 2023-02-15 13:23 | RAD REPORT ---
[facility] CLINICAL HISTORY: Resp failure COMPARISON: Chest Single View dated 02/14/2023; Chest Single View dated 06/14/2020 TECHNIQUE: Portable AP view of the chest. FINDINGS: Decreased inspiratory effort and elevation of the right hemidiaphragm limit evaluation. Bi basilar airspace opacities, with new abnormality right basilar. No pneumothorax or effusion. The car diomediastinal contours are unremarkable. IMPRESSION: Bibasilar airspace opacities, the abnormality on the right appears new. Developing pneum onia or aspiration should be considered.
[2023-02-15 13:42] VITALS: BMI 26.7
--- NOTE | 2023-02-15 17:05 | EKG ---
Test Date: 2023-02-14 Test Time: 09:03:34 Production Expediter: ZAID MEASUREMENT RESULTS: Intervals: Rate: 126 DC: 126 QRSD: 76 QT: 334 QTc: 483 [place]: P: 47 DC: 126 QRS: 155 T: 36 INTERPRETIVE STATEMENTS: Sinus tachycardia Right axis deviation Anterior infarct, age undetermined Abnormal ECG Compared to ECG 11/13/2020 06:54:48 Right-axis deviation now present Myocardial infarct finding now present Sinus rhythm no longer present Electronically Signed On 02-15-23 17:03:33 CDT by Mick Hernandez
[2023-02-15] MEDS: Meropenem 1,000 MG in NA CHLORIDE 0.9% 100 ML IV SCH (17:23)
[2023-02-15] MEDS ORDERED: VANCOMYCIN 1.5 GM in NA CHLORIDE 0.9% 500 ML IVPB SCH (18:00)
[2023-02-15] MEDS: D5W 1,000 ML with POTASSIUM CL 20 MEQ IV SCH ×2 (18:19)
[2023-02-16] MEDS: INSULIN REGULAR (HUMAN) 100 UNIT/ML SQ SCH ×5 (01:05→23:59)
[2023-02-16] MEDS: Meropenem 1,000 MG in NA CHLORIDE 0.9% 100 ML IV SCH ×3 (01:06→18:02)
[2023-02-16 05:09] LABS: Absolute Lymphocytes (CBC) 1.1 K/uL (0.7-4.9); Hematocrit 37.5 % (39.6-49.0); MCV 92.1 fL (80-100); MPV 8.7 fL (7.6-11.3); Platelets 213 thou/uL (152-406); RBC Red Blood Cell Count 4.08 M/uL (4.33-5.43)
[2023-02-16 05:21] LABS: Magnesium 2.4 mg/dL (1.6-2.4); Potassium 3.9 mEq/L (3.5-5.1)
[2023-02-16 05:24] LABS: Phosphorus 1.5 mg/dL (2.5-4.9)
[2023-02-16] MEDS ORDERED: POTASSIUM PHOS IN 0.9 % NACL 15 MMOL/250 ML BAG IV ONE (06:59)
--- NOTE | 2023-02-16 07:48 | RAD REPORT ---
EXAM DESCRIPTION: RAD - Chest Single View - 02/16/2023 6:54 am CLINICAL HISTORY: Resp failure Chest pain. COMPARISON: Chest Single View dated 02/15/2023; Chest Single View dated 02/14/2023; Chest Single Vie w dated 06/14/2020 FINDINGS: Portable technique limits examination quality. Underinflated lungs are again noted, without significant change since yesterday's chest radiograph. M ild asymmetric pulmonary opacities, greater on the left, appear similar when accounting for differenc es in technique. Heart size is mildly enlarged.
[2023-02-16] MEDS: INSULIN GLARGINE 100 UNIT/ML SQ SCH ×2 (08:34→20:23)
[2023-02-16 13:30] LABS: Absolute Lymphocytes (CBC) 1.3 K/uL (0.7-4.9); Hematocrit 37.5 % (39.6-49.0); MCV 92.4 fL (80-100); MPV 8.9 fL (7.6-11.3); Platelets 188 thou/uL (152-406); RBC Red Blood Cell Count 4.05 M/uL (4.33-5.43)
[2023-02-16 13:53] LABS: Magnesium 2.3 mg/dL (1.6-2.4); Phosphorus 1.8 mg/dL (2.5-4.9); Potassium 4.2 mEq/L (3.5-5.1)
[2023-02-16] MEDS: D5W 1,000 ML with POTASSIUM CL 20 MEQ IV SCH ×4 (14:24→20:23)
[2023-02-17] MEDS: Meropenem 1,000 MG in NA CHLORIDE 0.9% 100 ML IV SCH ×3 (00:43→18:06)
[2023-02-17] MEDS: D5W 1,000 ML with POTASSIUM CL 20 MEQ IV SCH ×4 (03:52→13:24)
[2023-02-17 04:33] LABS: Hematocrit 35.7 % (39.6-49.0); Lymphocytes % 7.4 % (15.3-44.8); MCV 92.3 fL (80-100); MPV 8.3 fL (7.6-11.3); Platelets 188 thou/uL (152-406); RBC Red Blood Cell Count 3.87 M/uL (4.33-5.43)
[2023-02-17 04:44] LABS: Magnesium 2.3 mg/dL (1.6-2.4); Phosphorus 1.9 mg/dL (2.5-4.9); Potassium 3.9 mEq/L (3.5-5.1)
[2023-02-17] MEDS ORDERED: POTASSIUM PHOS IN 0.9 % NACL 15 MMOL/250 ML BAG IV ONE (05:02)
[2023-02-17] MEDS: INSULIN REGULAR (HUMAN) 100 UNIT/ML SQ SCH ×3 (06:07→18:05)
[2023-02-17] MEDS: INSULIN GLARGINE 100 UNIT/ML SQ SCH ×2 (08:25→20:59)
[2023-02-18] MEDS: Meropenem 1,000 MG in NA CHLORIDE 0.9% 100 ML IV SCH (00:36)
[2023-02-18] MEDS: INSULIN REGULAR (HUMAN) 100 UNIT/ML SQ SCH ×4 (00:36→18:02)
[2023-02-18] MEDS: D5W 1,000 ML with POTASSIUM CL 20 MEQ IV SCH ×4 (03:04→16:11)
--- NOTE | 2023-02-18 07:38 | RAD REPORT ---
EXAM DESCRIPTION: [facility] Single View02/18/2023 4:35 am CLINICAL HISTORY: Chest pain COMPARISON: February 15, 2023 FINDINGS: The lungs appear clear of acute infiltrate. Heart is normal size. Blunting of the right lateral costophrenic sulcus may indicate a small pleural effusion. Mild elevation right hemidiaphragm unchanged
[2023-02-18 08:17] LABS: Absolute Lymphocytes (CBC) 1.1 K/uL (0.7-4.9); Lymphocytes % 7.6 % (15.3-44.8); MCV 92.3 fL (80-100); MPV 8.5 fL (7.6-11.3); Platelets 181 thou/uL (152-406); RBC Red Blood Cell Count 3.79 M/uL (4.33-5.43)
--- NOTE | 2023-02-18 08:27 | P.PN ---
Date of Service: 02/16/23 Subjective: Patient is doing well with no new complaints. No significant changes. Clinical symptoms are still very poor. e . Physical Exam: Vitals: reviewed GEN: Opens eyes and looks around and he seemsto be aware of what is going on, dementia HEENT: Normal conjunctiva, sclera anicteric CV: Regular rate & rhythm, no edema Pulm: Diminished, Crackles/rales ABD: Soft, nontender, nondistended MSK: No joint tenderness Integumentary: redness in the sacral region Neuro: paraplegic Problem List: Assessment: 1. Sepsis, secondary to aspiration pneumonia 2. Acute hypoxic respiratory failure 3. Hyperglycemia 4. Dementia, Parkinson's disease 5. CVA with left hemiplegia 6. Hyperlipidemia PLAN Plan: 1. Continue with IV antibiotics 2. Awaiting culture 3. Repeat chest x-ray 4. Swallow eval 5. Appreciate pulmonary consultation 6. Supportive care as needed 7. O2 per protocol 8. Continue with gentle hydration 9. Repeat labs 10. GI and DVT prophylaxis
--- NOTE | 2023-02-18 08:28 | P.PN ---
Date of Service: 02/17/23 Subjective: Patient did not really do well with his speech therapy consultation. He is not really following commands for his swallow evaluation. Will probably need PEG tube placement. Physical Exam: Vitals: reviewed GEN: Opens eyes and looks around and he seems to be aware of what is going on, dementia HEENT: Normal conjunctiva, sclera anicteric CV: Regular rate & rhythm, no edema Pulm: Diminished, Crackles/rales ABD: Soft, nontender, nondistended MSK: No joint tenderness Integumentary: redness in the sacral region Neuro: paraplegic Problem List: Assessment: 1. Sepsis, secondary to aspiration pneumonia 2. Acute hypoxic respiratory failure 3. Hyperglycemia 4. Dementia, Parkinson's disease 5. CVA with left hemiplegia 6. Hyperlipidemia 7. Dysphagia PLAN Plan: 1. Continue with IV antibiotics 2. Awaiting culture 3. Repeat chest x-ray 4. Swallow eval; patient not able to complete. Will need PEG tube placement 5. Appreciate pulmonary consultation 6. Supportive care as needed 7. O2 per protocol 8. Continue with gentle hydration 9. Repeat labs 10. GI and DVT prophylaxis
--- NOTE | 2023-02-18 08:34 | P.PN ---
Date of Service: 02/18/23 Subjective: Patient is doing well with no new changes. PEG tube placement in the morning. We will start tube feedings after that. Plan to transfer back to [place] Wednesday. Physical Exam: Vitals: reviewed GEN: Opens eyes and looks around and he seems to be aware of what is going on, dementia HEENT: Normal conjunctiva, sclera anicteric CV: Regular rate & rhythm, no edema Pulm: Diminished, Crackles/rales ABD: Soft, nontender, nondistended Integumentary: redness in the sacral region Neuro: paraplegic Problem List: Assessment: 1. Sepsis, secondary to aspiration pneumonia 2. Acute hypoxic respiratory failure 3. Hyperglycemia 4. Dementia, Parkinson's disease 5. CVA with left hemiplegia 6. Hyperlipidemia 7. Dysphagia PLAN Plan: 1. Go ahead and DC antibiotics; monitor white blood cell count 2. Cultures have been negative 3. Chest x-ray has been negative 4. Swallow eval; patient not able to complete. Will need PEG tube placement, and we will do this in the morning 5. Appreciate surgery consultation station 6. Supportive care as needed 7. O2 per protocol 8. Continue with gentle hydration; monitor blood sugars and monitor electrolytes 9. Monitor labs 10. GI and DVT prophylaxis
[2023-02-18 08:41] LABS: Albumin 1.6 g/dL (3.4-5.0); Bilirubin Total 0.6 mg/dL (0.2-1.0); Magnesium 2.3 mg/dL (1.6-2.4); Phosphorus 2.2 mg/dL (2.5-4.9); Potassium 3.7 mEq/L (3.5-5.1); Protein, Total 5.1 g/dL (6.4-8.2)
[2023-02-18] MEDS: INSULIN GLARGINE 100 UNIT/ML SQ SCH ×2 (08:41→20:20)
[2023-02-18] MEDS ORDERED: POTASSIUM PHOS IN 0.9 % NACL 15 MMOL/250 ML BAG IV ONE (10:41)
[2023-02-19] MEDS: D5W 1,000 ML with POTASSIUM CL 20 MEQ IV SCH ×6 (05:46→23:32)
[2023-02-19] MEDS: INSULIN REGULAR (HUMAN) 100 UNIT/ML SQ SCH ×4 (06:00→17:40)
[2023-02-19 08:08] LABS: Albumin 1.7 g/dL (3.4-5.0); Bilirubin Total 0.7 mg/dL (0.2-1.0); Magnesium 2.4 mg/dL (1.6-2.4); Phosphorus 2.3 mg/dL (2.5-4.9); Potassium 3.9 mEq/L (3.5-5.1); Protein, Total 5.6 g/dL (6.4-8.2)
[2023-02-19] MEDS ORDERED: POTASSIUM PHOS IN 0.9 % NACL 15 MMOL/250 ML BAG IV ONE (08:19)
[2023-02-19] MEDS: INSULIN GLARGINE 100 UNIT/ML SQ SCH ×2 (09:05→20:16)
[2023-02-19] MEDS ORDERED: propofoL 200 MG/20 ML VIAL IV ONE (13:15)
[2023-02-19] MEDS ORDERED: LIDOCAINE 1% MPF 30 ML VIAL ONE (13:15)
[2023-02-19] MEDS ORDERED: Ringers Lactate 1,000 ML IV ONE (13:33)
[2023-02-19] MEDS: CEFAZOLIN SODIUM 1 GM/VIAL ONE ×2 (13:39→13:49)
--- NOTE | 2023-02-19 15:53 | P.PN ---
Date of Service: 02/19/23 RD [address]. Bolus Feeds: 1.) Glucerna 1.5 (275ml fed over 30-60 minutes) QID 2.) Flush with a minimum of 60ml water before and after each feeding to provide a total of 1315ml water/day (additional water flushes PRN to meet remainder of fluid needs)
[2023-02-19] MEDS ORDERED: D5W 0 ML IV ONE (23:19)
[2023-02-20] MEDS: INSULIN REGULAR (HUMAN) 100 UNIT/ML SQ SCH ×4 (06:00→18:16)
[2023-02-20] MEDS: INSULIN GLARGINE 100 UNIT/ML SQ SCH ×2 (07:53→20:22)
[2023-02-20] MEDS: D5W 1,000 ML with POTASSIUM CL 20 MEQ IV SCH ×6 (08:20→21:48)
--- NOTE | 2023-02-20 14:03 | P.PN ---
Subjective Date of Service: 02/20/23 Primary Care Provider: Dr. Wright Chief Complaint: Sepsis, pneumonia, hyperglycemia Subjective: Improving Physical Examination - Vital Signs Temperature: 97.6 F Blood Pressure: 105/63 Pulse: 73 Respirations: 18 Pulse Ox (%): 96 - Physical Exam General: Alert, In no apparent distress Gastrointestinal: Other (soft, non-tender, PEG in place, clean and dry) - Studies Microbiology Data (last 24 hrs): 02/14/23 09:25 Blood - Blood Aerobic Blood Culture - Final 02/14/23 09:25 Blood - Blood Blood Culture Gram Stain - Final 02/14/23 09:25 Blood - Blood Anaerobic Blood Culture - Final No growth in 5 days. 02/14/23 09:14 Blood - Blood Aerobic Blood Culture - Final No growth in 5 days. 02/14/23 09:14 Blood - Blood Anaerobic Blood Culture - Final No growth in 5 days. Assessment And Plan - Plan s/p PEG placement yesterday -Okay to initiate tube feeds per nutrition's recommendations -Follow-up as needed in my office -Follow-up on biopsies from EGD/PEG tube, start acid suppression treatment at this point for known gastritis evident visually on EGD -Patient/ to call my office to follow-up on biopsies Physician Review: Patient Assessed, Agree with Above Assessment and Plan
[2023-02-20] MEDS: GLUCERNA 1.5 CAL 1,000 ML BOT FT SCH ×2 (15:57→20:14)
--- NOTE | 2023-02-20 17:24 | CON ---
Date of Consultation: 02/17/2023 Brief History Of Present Illness: Patient is a 78-year-old male with a history of dementia, hyperlip idemia, Parkinson disease, vascular dementia, hypertension, CVA with left-sided hemiparesis [facility], diverticulitis who presented with complaints of shortness of breath and worsening sympt oms. Patient's spouse is at the bedside and is a primary historian. She states that she sees him at his facility[facility] where he is taken care of, I believe is [facility] and has noticed he has h ad progressive difficulty swallowing over the course of the past several months. By report, she stat es he has had multiple swallow studies, which showed decreased ability to swallow and maintain his ai rway protection and as such, I am consulted to see the patient regarding discussion of a PEG feeding tube. The patient's has discussed that he is becoming less able to tolerate p.o. and has notice d that he has had an intermittent improving and worsening function, but the decline has been obvious to her and his nutrition seems to be suffering and as such she requests feeding tube access. Patient is agreeing to above-stated plan and agreeing with the while at the bedside. Past Medical History: As described above, dementia, hyperlipidemia, hypertension, Parkinson disease, left-sided weakness, diverticulitis, malnutrition. Allergies: NO KNOWN DRUG ALLERGIES. Past Surgery History: Includes rotator cuff surgery, prostate surgery, and hernia surgery in the pas t of uncertain type. Home Medications: Include Vitamin C, Sinemet, Vitamin B12, duloxetine, probiotic, magnesium, melaton in, Namenda, Norvasc, Plavix, Zetia. Social History: There is no smoking, alcohol, or recreational drug use. Review of Systems: 10-point review of systems unable to obtain as the patient is currently lethargic, but arousable. Physical Examination: General: At the time of my examination, he is lethargic, but arousable and answers questions appropr iately. HEENT: Otherwise normocephalic. Sclerae icteric. Mucous membranes are moist. Oropharynx clear. Neck: Supple without JVD. Chest: Normal expansion and excursion. Cardiovascular: Regular rate and rhythm. Pulmonary: Clear to auscultation bilaterally, but decreased breath sounds bilaterally. Abdomen: Soft, nontender, nondistended. No rebound. No guarding. No focal peritonitis. Extremities: He does have left-sided hemiparesis. Skin: He does have some dermatitis to the area of his pelvic area consistent with the distribution o f moisture. Laboratory Data: Revealed a white blood cell count of 13.6, hemoglobin 12.1, hematocrit 35.7, platel et count was 188. His chemistry showed a sodium of 147, potassium 3.9, chloride 119, carbon dioxide 25, BUN 20, creatinine 0.8, glucose is 235, calcium 8.0. Phosphorus 1.9. He had a chest x-ray on , which was officially read as underinflated lungs with mild atelectasis or infiltrate in both quentin g bases. Assessment And Plan: This is a 78-year-old male who comes in with progressive weight loss, inability to tolerate p.o., dysphagia and inability to protect airway with repeated episodes of aspiration pne umonia. 1.Continue IV fluid hydration. 2.I have explained risks, benefits, and alternatives of placement of percutaneous endoscopic gastros anival tube, including, but not limited to bleeding, infection, damage to surrounding tissues, need for further operation and procedures. Patient agreed to proceed as indicated. Thank you for this interesting consult. ANDREEA/JAMIN Voice ID: [id number] Report ID: [id number]
[2023-02-20] MEDS: FAMOTIDINE 20 MG/2 ML VIAL IV SCH (20:22)
[2023-02-21] MEDS: INSULIN REGULAR (HUMAN) 100 UNIT/ML SQ SCH ×5 (06:00→23:36)
[2023-02-21] MEDS: FAMOTIDINE 20 MG/2 ML VIAL IV SCH ×2 (07:45→20:37)
[2023-02-21] MEDS: INSULIN GLARGINE 100 UNIT/ML SQ SCH ×2 (07:45→20:38)
[2023-02-21] MEDS: GLUCERNA 1.5 CAL 1,000 ML BOT FT SCH ×4 (07:45→20:38)
[2023-02-21] MEDS ORDERED: D5W 1,000 ML with POTASSIUM CL 20 MEQ IV SCH ×2 (08:00)
[2023-02-21 13:14] LABS: Absolute Lymphocytes (CBC) 1.4 K/uL (0.7-4.9); Hematocrit 37.1 % (39.6-49.0); Lymphocytes % 13.4 % (15.3-44.8); MCV 92.1 fL (80-100); MPV 8.9 fL (7.6-11.3); Platelets 245 thou/uL (152-406); RBC Red Blood Cell Count 4.02 M/uL (4.33-5.43)
[2023-02-21 13:25] LABS: Potassium 4.2 mEq/L (3.5-5.1)
[2023-02-21 13:38] LABS: Blood Morphology Comment NOT SEEN (NOT SEEN); Platelet Estimate ADEQ; White Blood Cell Scan OK (OK)
--- NOTE | 2023-02-22 05:42 | P.PN ---
Date of Service: 02/19/23 Subjective: Patient is stable with no new complaints. Clinical symptoms are improved. Physical Exam: Vitals: reviewed GEN: Opens eyes and looks around and he seems to be aware of what is going on, dementia HEENT: Normal conjunctiva, sclera anicteric CV: Regular rate & rhythm, no edema Pulm: Diminished, Crackles/rales ABD: Soft, nontender, nondistended; NG tube is in place Integumentary: redness in the sacral region Neuro: paraplegic Problem List: Assessment: 1. Sepsis, secondary to aspiration pneumonia 2. Acute hypoxic respiratory failure 3. Hyperglycemia 4. Dementia, Parkinson's disease 5. CVA with left hemiplegia 6. Hyperlipidemia 7. Dysphagia PLAN Plan: 1. Go ahead and DC antibiotics; monitor white blood cell count 2. Cultures have been negative 3. Chest x-ray has been negative 4. s/p PEG tube placement; plan to start tube feeds tomorrow afternoon 5. Appreciate surgery consultation 6. Supportive care as needed 7. O2 per protocol 8. Continue with gentle hydration; monitor blood sugars and monitor electrolytes 9. Monitor labs 10. GI and DVT prophylaxis RD consulted. Bolus Feeds: 1.) Glucerna 1.5 (275ml fed over 30-60 minutes) QID 2.) Flush with a minimum of 60ml water before and after each feeding to provide a total of 1315ml water/day (additional water flushes PRN to meet remainder of fluid needs)
[2023-02-22] MEDS: INSULIN REGULAR (HUMAN) 100 UNIT/ML SQ SCH ×2 (05:44→12:16)
--- NOTE | 2023-02-22 05:45 | P.PN ---
Date of Service: 02/20/23 Subjective: Starting tube feeds today. If patient does well with his tube feedings, plan to transfer back to half-way on Wednesday morning. Physical Exam: Vitals: reviewed GEN: Opens eyes and looks around and he seems to be aware of what is going on, dementia HEENT: Normal conjunctiva, sclera anicteric CV: Regular rate & rhythm, no edema Pulm: Diminished, Crackles/rales ABD: Soft, nontender, nondistended; Peg tube in place Integumentary: redness in the sacral region Neuro: paraplegic Problem List: Assessment: 1. Sepsis, secondary to aspiration pneumonia 2. Acute hypoxic respiratory failure 3. Hyperglycemia 4. Dementia, Parkinson's disease 5. CVA with left hemiplegia 6. Hyperlipidemia 7. Dysphagia status post PEG tube placement PLAN Plan: 1. aspiration precautions; continue antibiotic therapy 2. Cultures have been negative 3. Chest x-ray has been negative 4. Swallow eval; patient not able to complete. Will need PEG tube placement, and we will do this in the morning 5. Appreciate surgery consultation station 6. Supportive care as needed 7. O2 per protocol 8. Continue with gentle hydration; monitor blood sugars and monitor electrolytes 9. Monitor labs 10. GI and DVT prophylaxis
--- NOTE | 2023-02-22 05:48 | P.PN ---
Date of Service: 02/21/23 Subjective: patient tolerating tube feeds. No new complaints. [facility] Physical Exam: Vitals: reviewed GEN: Opens eyes and looks around and he seems to be aware of what is going on, dementia CV: Regular rate & rhythm, no edema Pulm: Diminished, Crackles/rales ABD: Soft, nontender, nondistended; Peg tube in place Integumentary: redness in the sacral region Neuro: paraplegic Problem List: Assessment: 1. Sepsis, secondary to aspiration pneumonia 2. Acute hypoxic respiratory failure 3. Hyperglycemia 4. Dementia, Parkinson's disease 5. CVA with left hemiplegia 6. Hyperlipidemia 7. Dysphagia status post PEG tube placement PLAN Plan: 1. aspiration precautions; continue antibiotic therapy 2. Cultures have been negative 3. Chest x-ray has been negative 4. Swallow eval; patient not able to complete. Will need PEG tube placement, and we will do this in the morning 5. Appreciate surgery consultation station 6. Supportive care as needed 7. O2 per protocol 8. Continue with gentle hydration; monitor blood sugars and monitor electrolytes 9. Monitor labs 10. GI and DVT prophylaxis
[2023-02-22] MEDS ORDERED: ALBUMIN HUMAN 25% 50 ML IV ONE (05:51)
[2023-02-22] MEDS ORDERED: Pantoprazole (granules) 40 MG/BLIST PACKET FT SCH (06:30)
[2023-02-22] MEDS ORDERED: CARBIDOPA/LEVODOPA 25/250 TAB PO SCH (08:00)
[2023-02-22] MEDS: FAMOTIDINE 20 MG/2 ML VIAL IV SCH (08:25)
[2023-02-22] MEDS: MIDODRINE HCL 5 MG TABLET PO SCH ×3 (08:25→13:13)
[2023-02-22] MEDS: INSULIN GLARGINE 100 UNIT/ML SQ SCH (08:32)
[2023-02-22] MEDS: GLUCERNA 1.5 CAL 1,000 ML BOT FT SCH ×2 (08:32→13:13)
[2023-02-22] MEDS: CARBIDOPA/LEVODOPA 25/250 TAB PO SCH ×2 (08:48→14:00)
[2023-02-22] MEDS ORDERED: predniSONE 20 MG TAB PO SCH (09:00)
[2023-02-22 10:28] LABS: SARS-CoV-2 Antigen Rapid Res Negative (Negative)
[2023-02-25 12:42] VITALS: BP 101/52; TEMP 97.1
[2023-02-25 13:08] VITALS: O2SAT 93
== END 2023-02-22 15:00 | DRG 871 ==
LOC: ER 08:54 → ERHOLD 11:36 → 3RD-ICU 14:23 → 4TH 02-19 12:20
PROVIDERS: ADMIT Internal Medicine Sleep Medicine; ATTEND Hospitalist
PROC: 0DB78ZX Excision of Stomach, Pylorus, Via Natural or Artificial Opening Endoscopic, Diagnostic (ICD-10-PCS; 2023-02-19)
PROC: 0DB68ZX Excision of Stomach, Via Natural or Artificial Opening Endoscopic, Diagnostic (ICD-10-PCS; 2023-02-19)
PROC: 0DH63UZ Insertion of Feeding Device into Stomach, Percutaneous Approach (ICD-10-PCS; principal; 2023-02-19 14:30)
DX: A41.9 Sepsis, unspecified organism (principal); J69.0 Pneumonitis due to inhalation of food and vomit; J96.01 Acute respiratory failure with hypoxia; I69.354 Hemiplegia and hemiparesis following cerebral infarction affecting left non-dominant side; G82.20 Paraplegia, unspecified; R65.20 Severe sepsis without septic shock; G20.A1 Parkinson's disease without dyskinesia, without mention of fluctuations; I10 Essential (primary) hypertension; L22 Diaper dermatitis; E78.5 Hyperlipidemia, unspecified; K29.30 Chronic superficial gastritis without bleeding; N28.9 Disorder of kidney and ureter, unspecified; F02.80 Dementia in other diseases classified elsewhere, unspecified severity, without behavioral disturbance, psychotic disturbance, mood disturbance, and anxiety; F01.50 Vascular dementia, unspecified severity, without behavioral disturbance, psychotic disturbance, mood disturbance, and anxiety; I69.391 Dysphagia following cerebral infarction; R13.10 Dysphagia, unspecified; R73.9 Hyperglycemia, unspecified; Z66 Do not resuscitate; Z11.52 Encounter for screening for COVID-19; Z79.02 Long term (current) use of antithrombotics/antiplatelets; Z79.899 Other long term (current) drug therapy
CPT/HCPCS: 36415; 36600; 71045; 80048; 80053; 82805; 82947; 83036; 83605; 83735; 83880; 84100; 85025; 85610; 85730; 87040; 87205; 87811; 88305; 88312; 92610; 93005; 94760; 99285; J0690; J0696; J1815; J2001; J2185; J2704; J3480; J7030; J7040; J7050; J7120; J7512; P9047

== ENCOUNTER 2023-12-10 07:59 | Day surgery (SDC) | payer OTHER ==
[2023-12-10] MEDS ORDERED: NA CHLORIDE 0.9% 1,000 ML ONE ×2 (08:36→11:54)
[2023-12-10 08:50] LABS: Absolute Basophils 0.1 K/uL (0-0.5); Absolute Eosinophils 0.3 K/uL (0-0.5); Absolute Lymphocytes (CBC) 2.2 K/uL (0.7-4.9); Absolute Monocytes 1.1 K/uL (0.1-1.3); Absolute Neutrophil 5.9 K/uL (1.8-8.0); Basophils % 0.7 % (0-1.3); Eosinophils % 3.2 % (0-4.4); Hemoglobin 16.1 g/dL (13.6-17.9); MCH 31.4 pg (27.0-35.0); MCHC 32.9 g/dL (32.0-36.0); MCV 95.3 fL (80-100); Monocytes % 11.3 % (3.3-12.3); Neutrophils % 61.8 % (41.7-73.7); Nucleated Red Blood Cells % 0.2 % (0-0); Platelets 197 thou/uL (152-406); RBC Red Blood Cell Count 5.14 M/uL (4.33-5.43); Red Cell Distribution Width 14.2 % (12.1-15.2)
[2023-12-10 09:01] LABS: PT Prothrombin Time 12.4 SECONDS (9.4-12.5); PTT, Activated Partial Thromb 32.1 SECONDS (24.3-36.9); Protime INR 1.11
[2023-12-10] MEDS ORDERED: LIDOCAINE 1% MPF 5 ML VIAL ONE (12:53)
[2023-12-10] MEDS ORDERED: propofoL 200 MG/20 ML VIAL IV ONE ×2 (12:53)
[2023-12-10] MEDS ORDERED: EPHEDRINE SULF 50 MG/ML VIAL ONE (13:40)
--- NOTE | 2023-12-10 14:05 | EKG ---
Test Date: 2023-12-10 Test Time: 08:05:16 Hospital Nurse: SHANTELLE MEASUREMENT RESULTS: Intervals: Rate: 57 CT: 170 QRSD: 86 QT: 438 QTc: 426 [place]: P: 64 CT: 170 QRS: -51 T: 41 INTERPRETIVE STATEMENTS: Sinus bradycardia Left axis deviation Low voltage QRS Cannot rule out Anterior infarct, age undetermined Abnormal ECG Compared to ECG 02/14/2023 09:03:34 Left-axis deviation now present Low QRS voltage now present Sinus tachycardia no longer present Right-axis deviation no longer present Myocardial infarct finding still present Electronically Signed On 12-10-23 14:05:06 CDT by Mick Hernandez
[2023-12-10 15:19] VITALS: BP 109/58; TEMP 98; O2SAT 98
== END 2023-12-10 14:30 | disposition home or self-care (01) ==
LOC: OR 07:59
PROVIDERS: ATTEND Surgery
PROC: 0DB98ZX Excision of Duodenum, Via Natural or Artificial Opening Endoscopic, Diagnostic (ICD-10-PCS; principal; 2023-12-10 12:15)
PROC: 0DB78ZX Excision of Stomach, Pylorus, Via Natural or Artificial Opening Endoscopic, Diagnostic (ICD-10-PCS; 2023-12-10 12:15)
DX: R10.13 Epigastric pain (principal); K21.9 Gastro-esophageal reflux disease without esophagitis; R13.10 Dysphagia, unspecified; K29.80 Duodenitis without bleeding; K29.50 Unspecified chronic gastritis without bleeding
CPT/HCPCS: 43239; 43246; 93005; 85025; 80048; 36415; 88312; 85610; 82947; 88300; 88304; 85730; J2704; J2001; J7030 ×2

== ENCOUNTER 2024-07-08 12:37 | Emergency (ER) | payer OTHER ==
[2024-07-08] MEDS ORDERED: LIDOCAINE VISCOUS 2% 10ML ORAL SOLN ONE (15:00)
--- NOTE | 2024-07-08 15:32 | ER ---
Nurse's Notes [facility] Name: Blair Garcia Age: 79 yrs Sex: Male : 1945 Arrival Date: 07/08/2024 Time: 12:37 Bed 18 Private MD: Diagnosis: Hematuria, unspecified-GROSS;Other retention of urine-ACUTE Presentation: 07/08 12:45 Chief complaint: EMS states: genital bleeding during straight cath this morning. kj2 Coronavirus screen: Client denies travel out of the [place] in the last 14 days. Ebola Screen: No symptoms or risks identified at this time. Initial Sepsis Screen: Does the patient meet any 2 criteria? No. Patient's initial sepsis screen is negative. Does the patient have a suspected source of infection? No. Patient's initial sepsis screen is negative. Risk Assessment: Do you want to hurt yourself or someone else? Patient reports no desire to harm self or others. Onset of symptoms was July 08, 2024. 12:45 Method Of Arrival: EMS: [facility] kj2 12:45 Acuity: SOFIA 3 kj2 Triage Assessment: 12:45 General: Appears in no apparent distress. Behavior is calm, cooperative. Pain:. Neuro: kj2 Level of Consciousness is awake, alert, Oriented to person. Cardiovascular: Patient's skin is warm and dry. Respiratory: Airway is patent Respiratory effort is even, unlabored. GI: No signs and/or symptoms were reported involving the gastrointestinal system. : Reports inability to void, bleeding during straight cath. - Immunization history:: Adult Immunizations unknown. - Infectious Disease History:: Denies. - Social history:: Smoking status: Patient denies any tobacco usage or history of. Screenin:45 [facility] ED Fall Risk Assessment (Adult) History of falling in the last 3 months, kj2 including since admission No falls in past 3 months (0 pts) Confusion or Disorientation Yes (5 pts) Intoxicated or Sedated No (0 pts) Impaired Gait Yes (1 pt) Mobility Assist Device Used Yes (1 pt) Altered Elimination Yes (1 pt) Score/Fall Risk Level 3 or more points = High Risk Maintained a safe environment, Hourly rounding (assess needs \T\ fall precautionary measures) done, Utilized family, sitter, or virtual lube attendant as indicated. Abuse screen: Denies threats or abuse. Denies injuries from another. Nutritional screening: No deficits noted. Tuberculosis screening: No symptoms or risk factors identified. Assessment: 12:45 General: see triage assessment. kj2 13:45 Reassessment: Patient appears in no apparent distress at this time. Patient and/or kj2 family updated on plan of care and expected duration. Pain level reassessed. Patient is alert, oriented x 3, equal unlabored respirations, skin warm/dry/pink. 14:45 Reassessment: Patient appears in no apparent distress at this time. Patient and/or kj2 family updated on plan of care and expected duration. Pain level reassessed. Patient is alert, oriented x 3, equal unlabored respirations, skin warm/dry/pink. 15:40 Reassessment: MD attempt to insert caude catheter, unsuccessful. Urine not obtained, kj2 blood only. Vital Signs: 12:45 Weight 71.21 kg; Height 5 ft. 5 in. ; kj2 12:45 BP 138 / 68; Pulse 60; Resp 18; Temp 98; Pulse Ox 98% on R/A; kj2 14:45 BP 134 / 70; Pulse 60; Resp 18; Pulse Ox 98% on R/A; kj2 15:40 BP 120 / 66; Pulse 68; Resp 18; Pulse Ox 100% on R/A; kj2 12:45 Body Mass Index 26.13 (71.21 kg, 165.1 cm) kj2 ED Course: 13:01 Patient arrived in ED. ty 13:04 Angie López, RN is Primary Nurse. kj2 13:07 Triage completed. kj2 13:45 Anuel Gonzales MD is Attending Physician. bryn 15:43 Inserted saline lock: 20 gauge in left forearm, using aseptic technique. td1 15:44 Initial lab(s) drawn, by wv, sent to lab. td1 15:44 Warm blanket given. Head of bed elevated. td1 15:45 Comprehensive Metabolic Panel Sent. td1 15:45 CBC with Diff Sent. td1 Administered Medications: 15:50 Drug: Rocephin IV 1 grams IV at per protocol once; Given slow IV push per pharmacy kj2 instructions Route: IV; Rate: per protocol; Site: left forearm; Medication: 12:45 VIS not applicable for this client. kj2 Outcome: 15:32 ER care complete, transfer ordered by . bryn 16:16 Patient left the ED. hb Signatures: Anuel Gonzales MD MD cha Baxter, Heather, RN RN Corey Sanon Krystal RN RN kj2 Hernan Jones td1 Corrections: (The following items were deleted from the chart) 15:40 15:00 Reassessment: attempt to insert caude catheter, unsuccessful. Urine not kj2 obtained, blood only kj2
--- NOTE | 2024-07-08 15:32 | EDPHYS ---
Physician Documentation [facility] Name: Blair Garcia Age: 79 yrs Sex: Male : 1945 Arrival Date: 07/08/2024 Time: 12:37 Bed 18 Private MD: ED Physician Anuel Gonzales HPI: 07/08 15:24 This 79 yrs old Male presents to ER via EMS with complaints of Penile bryn Bleeding. 15:24 The patient presents with a Fuller catheter problem, urinary symptoms, retention, unable bryn to void. Onset: The symptoms/episode began/occurred 1 day(s) ago. Modifying factors: The symptoms are alleviated by nothing, the symptoms are aggravated by not able to urinate. Severity of symptoms: At their worst the symptoms were severe, in the emergency department the symptoms are unchanged. The patient has not experienced similar symptoms in the past. - Immunization history:: Adult Immunizations unknown. - Infectious Disease History:: Denies. - Social history:: Smoking status: Patient denies any tobacco usage or history of. ROS: 15:25 Constitutional: Negative for fever, chills, and weight loss, Eyes: Negative for injury, bryn pain, redness, and discharge, ENT: Negative for injury, pain, and discharge, Neck: Negative for injury, pain, and swelling, Cardiovascular: Negative for chest pain, palpitations, and edema, Respiratory: Negative for shortness of breath, cough, wheezing, and pleuritic chest pain, Back: Negative for injury and pain, MS/Extremity: Negative for injury and deformity, Skin: Negative for injury, rash, and discoloration, Neuro: Negative for headache, weakness, numbness, tingling, and seizure, Psych: Negative for depression, anxiety, suicide ideation, homicidal ideation, and hallucinations, Allergy/Immunology: Negative for hives, rash, and allergies, Endocrine: Negative for neck swelling, polydipsia, polyuria, polyphagia, and marked weight changes, Hematologic/Lymphatic: Negative for swollen nodes, abnormal bleeding, and unusual bruising, 15:25 Abdomen/GI: Positive for abdominal pain, abdominal distension, of the suprapubic area, right lower quadrant and left lower quadrant, 15:25 : Positive for hematuria, Exam: 15:29 Constitutional: This is a well developed, well nourished patient who is awake, alert, bryn and in no acute distress. Head/Face: Normocephalic, atraumatic. Eyes: Pupils equal round and reactive to light, extra-ocular motions intact. Lids and lashes normal. Conjunctiva and sclera are non-icteric and not injected. Cornea within normal limits. Periorbital areas with no swelling, redness, or edema. ENT: Nares patent. No nasal discharge, no septal abnormalities noted. Tympanic membranes are normal and external auditory canals are clear. Oropharynx with no redness, swelling, or masses, exudates, or evidence of obstruction, uvula midline. Mucous membranes moist. Neck: Trachea midline, no thyromegaly or masses palpated, and no cervical lymphadenopathy. Supple, full range of motion without nuchal rigidity, or vertebral point tenderness. No Meningismus. Chest/axilla: Normal chest wall appearance and motion. Nontender with no deformity. No lesions are appreciated. Cardiovascular: Regular rate and rhythm with a normal S1 and S2. No gallops, murmurs, or rubs. Normal PMI, no JVD. No pulse deficits. Respiratory: Lungs have equal breath sounds bilaterally, clear to auscultation and percussion. No rales, rhonchi or wheezes noted. No increased work of breathing, no retractions or nasal flaring. Back: No spinal tenderness. No costovertebral tenderness. Full range of motion. Skin: Warm, dry with normal turgor. Normal color with no rashes, no lesions, and no evidence of cellulitis. MS/ Extremity: Pulses equal, no cyanosis. Neurovascular intact. Full, normal range of motion., bilateral aka Neuro: Awake and alert, GCS 15, oriented to person, place, time, and situation. Cranial nerves II-XII grossly intact. Motor strength 5/5 in all extremities. Sensory grossly intact. Cerebellar exam normal. Normal gait. Psych: Awake, alert, with orientation to person, place and time. Behavior, mood, and affect are within normal limits. 15:29 Abdomen/GI: Inspection: distension, that is moderate, in the suprapubic area, right lower quadrant and left lower quadrant, Palpation: mild abdominal tenderness, in the suprapubic area, right lower quadrant and left lower quadrant, Liver: no appreciated palpable abnormalities, Hernia: not appreciated, 15:29 : CVA tenderness, is absent, Male external genitalia: normal, Bladder: distension, that is moderate, that is severe, tenderness, that is moderate, Sexual behavior: the patient is not sexually active, Vital Signs: 12:45 Weight 71.21 kg; Height 5 ft. 5 in. ; kj2 12:45 BP 138 / 68; Pulse 60; Resp 18; Temp 98; Pulse Ox 98% on R/A; kj2 14:45 BP 134 / 70; Pulse 60; Resp 18; Pulse Ox 98% on R/A; kj2 15:40 BP 120 / 66; Pulse 68; Resp 18; Pulse Ox 100% on R/A; kj2 12:45 Body Mass Index 26.13 (71.21 kg, 165.1 cm) kj2 Procedures: 15:32 NOT ABLE PASS 16, 18 , COUDE. bryn MDM: 13:45 Medical Screening Exam initiated bryn 15:30 Differential diagnosis: nonspecific abdominal pain, UTI, urinary retention, Fuller bryn catheter problem, prostatitis, urethritis. Data reviewed: vital signs, nurses notes, lab test result(s). Consideration of Admission/Observation Escalation of care including admission/observation considered. I considered the following discharge prescriptions or medication management in the emergency department Medications were administered in the Emergency Department. See MAR. Test considered but Not performed: CT: no ct stone. Care significantly affected by the following chronic conditions: cva, bedridden, aphasia. 15:33 ED course: PT HAD FULLER 1 WEEK AGO , REMOVED 3 DAYS AGO , NOT ABLE TO URINATE TODAY, bryn FULLER ATTEMPT AT NH NOT ABLE TO PASS, HAD HEMATIRIA. 07/08 14:58 Order name: CBC with Diff [facility] 07/08 14:58 Order name: Comprehensive Metabolic Panel [facility] 07/08 15:24 Order name: PT-INR [facility] 07/08 15:24 Order name: NPO; Complete Time: 15:33 bryn Administered Medications: 15:50 Drug: Rocephin IV 1 grams IV at per protocol once; Given slow IV push per pharmacy kj2 instructions Route: IV; Rate: per protocol; Site: left forearm; Disposition Summary: 07/08/24 15:32 Transfer Ordered Notes: Transfer Location: [facility] bryn Reason: Higher level of care bryn Condition: Fair bryn Problem: new bryn Symptoms: have worsened bryn Accepting Physician: to rust er DR VANEGAS,UROLOGY(07/08/24 16:16) hb Diagnosis - Hematuria, unspecified - GROSS bryn - Other retention of urine - ACUTE bryn Forms: - Medication Reconciliation Form bryn - SBAR form bryn Signatures: Dispatcher [employer] EDAnuel Mendoza MD MD cha Baxter, Heather, RN RN Angie Herrmann, RN RN kj2 Corrections: (The following items were deleted from the chart) 14:58 14:58 CBC+H.LAB.BRZ ordered. EDMS EDMS 14:58 14:58 COMPREHENSIVE METABOLIC PANEL+C.LAB.BRZ ordered. EDMS EDMS 16:11 15:35 Stone Protocol+CT.RAD.BRZ ordered. EDMS EDMS 16:16 15:[address] VANEGAS,UROLOGY bryn hb
[2024-07-08] MEDS ORDERED: CEFTRIAXONE 1000 MG/VIAL ONE (15:45)
[2024-07-08 16:01] LABS: Absolute Basophils 0.1 K/uL (0-0.5); Absolute Eosinophils 0.4 K/uL (0-0.5); Absolute Lymphocytes (CBC) 1.7 K/uL (0.7-4.9); Absolute Monocytes 1.1 K/uL (0.1-1.3); Absolute Neutrophil 7.9 K/uL (1.8-8.0); Basophils % 0.6 % (0-1.3); Eosinophils % 3.3 % (0-4.4); Hematocrit 44.1 % (39.6-49.0); Lymphocytes % 15.2 % (15.3-44.8); MCH 32.7 pg (27.0-35.0); MCV 96.3 fL (80-100); MPV 9.2 fL (7.6-11.3); Monocytes % 9.6 % (3.3-12.3); Neutrophils % 71.3 % (41.7-73.7); Nucleated Red Blood Cells % 0.1 % (0-0); Platelets 185 thou/uL (152-406); RBC Red Blood Cell Count 4.58 M/uL (4.33-5.43)
[2024-07-08 16:15] LABS: Protime INR 1.15
[2024-07-08 16:25] VITALS: TEMP 98
[2024-07-08 16:31] LABS: Albumin 2.6 g/dL (3.4-5.0); Albumin/Globulin Ratio 0.6 (1.1-1.8); Anion Gap 13.4 mEq/L (5.0-15.0); Bilirubin Total 0.8 mg/dL (0.2-1.0); Globulin 4.1 g/dL (2.3-3.5); Protein, Total 6.7 g/dL (6.4-8.2)
[2024-07-08 16:33] LABS: Potassium 5.4 mEq/L (3.5-5.1)
[2024-07-08 16:36] VITALS: BP 120/66; O2SAT 100
== END 2024-07-08 16:16 | disposition short-term general hospital (02) ==
LOC: ER 12:37
DX: R31.0 Gross hematuria (principal); R33.8 Other retention of urine
CPT/HCPCS: 85025; 36415; 85610; 80053; 96374; 99284; J0696